=== PATIENT | male | born 1945 | race Caucasian/White ===

== ENCOUNTER 2016-10-06 11:00 | Emergency (ER) | payer MEDICARE ==
[2016-10-06 11:09] VITALS: TEMP 98.3; BMI 36.1
[2016-10-06 11:22] LABS: AUTOMATED BASOPHIL 0.4 % (0-2); AUTOMATED EOSINOPHIL 0.4 % (0-5); AUTOMATED LYMPH 12.2 % (17-44); AUTOMATED MONOCYTE 6.8 % (3-10); AUTOMATED NEUTROPHIL 80.2 % (45-76); MPV 8.1 fL (7.4-10.4)
[2016-10-06] MEDS ORDERED: LABETALOL 20 MG/4 ML SYRINGE IV STA (11:33)
[2016-10-06 11:35] LABS: BLOOD UREA NITROGEN 22 MG/DL (9-20); CALC CORRECTED 9.4 MG/DL (8.4-10.2); CALCIUM 9.3 MG/DL (8.4-10.2); CALCULATED OSMOLALITY 279 MOs/Kg (270-290); CHLORIDE 108 mEq/L (98-107); GLUCOSE 117 MG/DL (70-99); SODIUM LEVEL 143 mEq/L (137-146); TOTAL PROTEIN 6.8 G/DL (6.3-8.2)
[2016-10-06 11:36] LABS: PARTIAL THROMB. TIME 22.6 SEC (22-35)
[2016-10-06] MEDS ORDERED: DILTIAZEM 25 MG/5 ML VIAL IV ONE ×2 (11:42→14:27)
--- NOTE | 2016-10-06 11:47 | EDPRACDOC ---
- General Information Chief Complaint: Chest Pain Stated Complaint: A-FIB Time Seen by Provider: 10/06/16 11:26 Information Source: Patient Home Medications: Home Medications Metoprolol Tartrate 50 mg PO BID #20 tablet 10/06/16 Allergies/Adverse Reactions: Allergies Allergy/AdvReac Type Severity Reaction Status Date / Time No Known Allergies Allergy Verified 10/06/16 11:09 - History of Present Illness Onset: TODAY HPI: PT PRESENTS WITH PALPITATIONS. THIS WAS FOUND WHILE BEING SEEN AT URGENT CARE. HE HAS BEEN TAKING VENUS SELTZER PLUS FOR NASAL CONGESTION. IT CONTAINS PHENYLEPHRINE. HE IS ON A DAILY BETA ANGELY BUT HAS NOT TAKEN IT TODAY. Relevant History: Reports: None Heart Rate (bpm): 165 Pulse is: Irregular Associated signs & symptoms: Reports: Dyspnea. Denies: Chest pain Chest Pain Location: Reports: No Pain ED Past Medical History - History Reviewed Yes Nurses notes reviewed and agree except as marked - Patient Medical History Neurological History: Reports: Cerebrovascular Accident Cardiac History: Reports: Atrial Fibrillation, Hypertension, Hypercholesterolemia. Denies: Heart Attack Psychological History: Denies: Depression - Social Medical History Smoking Status: Former smoker Lives In: Home EDM Review of Systems - Review of Systems ROS Negative Except as Marked: Yes All systems reviewed and were negative except as marked Constitutional: Fatigue. negative: Fever Nose: Congestion, Discharge Respiratory: Shortness of Breath Cardiovascular: negative: Chest Pain Gastrointestinal: negative: Nausea, Pain, Vomiting - Physical Exam Constitutional: Alert Oriented to: Time, Person, Place Last recorded Vital Signs: Last Vital Signs Temp 98.3 F 10/06/16 11:03 Pulse 140 H 10/06/16 11:40 Resp 18 10/06/16 11:40 BP 154/97 10/06/16 11:40 Pulse Ox 94 10/06/16 11:40 Oxygen Pulse Oxygen Saturation 94 O2 Device Room Air Oxygen Flow Rate Fraction of Inspired Oxygen ( FIO2) - HEENT Head: negative: Deformity, Laceration Eye Exam: negative: Conjunctival Injection, Pale Conjunctiva Oropharynx: negative: Membranes Dry Nose: Congestion, Discharge Neck: negative: Limited ROM - Respiratory/Cardiovascular Respiratory: Normal - CTA. negative: Accessory Muscle Use, Diminished, Tachypnea Cardiovascular: Tachycardia, Irregular. negative: Bradycardia - GI Auscultation: Normal Palpation: Normal Tenderness: Non tender - Musculoskeletal Extremities: Radial Pulse (PALPABLE) - Integumentary Skin: Warm, Dry. negative: Rash - Neurologic Memory Impaired: Normal Motor Function: Normal Mood Description: Anxious, Appropriate Thought: Coherent Perception: Normal - Re-evaluation Re-evaluation 1 Re-evaluation Time: 14:27 PT INITIALLY STATED HE WAS NOT ON ANYTHING FOR A.FIB AND THAT HE DID NOT HAVE A.FIB AT BASELINE. ACCORDING TO HIS MEDICATION LIST HE IS ON CARDIZEM DAILY. HE STATES HE DID NOT MISS ANY AND THE ONLY MEDICATION HE IS MISSING IS HIS METOPROLOL. WILL GIVE DOSE OF CARDIZEM HERE AND WRITE FOR SHORT PRESCRIPTION OF METOPROLOL FOR HOME. - Results 10/06/16 11:11 10/06/16 11:11 WBC 14.6 xk/uL (3.8-10.8) H 10/06/16 11:11 RBC 5.29 xM/uL (4.70-6.10) 10/06/16 11:11 Hgb 16.4 g/dL (14.0-18.0) 10/06/16 11:11 Hct 47.8 % (42-52) 10/06/16 11:11 MCV 90 fL (80-94) 10/06/16 11:11 MCH 30.9 pg (27-32) 10/06/16 11:11 MCHC 34.2 g/dl (33-36) 10/06/16 11:11 RDW 15.2 % (11.5-14.5) H 10/06/16 11:11 Plt Count 228 xk/uL (130-400) 10/06/16 11:11 MPV 8.1 fL (7.4-10.4) 10/06/16 11:11 Neut % (Auto) 80.2 % (45-76) H 10/06/16 11:11 Lymph % (Auto) 12.2 % (17-44) L 10/06/16 11:11 Brooke % (Auto) 6.8 % (3-10) 10/06/16 11:11 Eos % (Auto) 0.4 % (0-5) 10/06/16 11:11 Baso % (Auto) 0.4 % (0-2) 10/06/16 11:11 Absolute Neuts (auto) 11.68 xk/uL (1.7-8.2) H 10/06/16 11:11 Absolute Lymphs (auto) 1.75 xk/uL (0.65-4.75) 10/06/16 11:11 PT 10.5 SEC (9.2-11.2) 10/06/16 11:11 INR 1.0 10/06/16 11:11 APTT 22.6 SEC (22-35) 10/06/16 11:11 Sodium 143 mEq/L (137-146) 10/06/16 11:11 Potassium 3.7 mEq/L (3.5-5.1) 10/06/16 11:11 Chloride 108 mEq/L (98-107) H 10/06/16 11:11 Carbon Dioxide 24 mMOL/L (22-33) 10/06/16 11:11 Anion Gap 15 mEq/L (8-16) 10/06/16 11:11 BUN 22 MG/DL (9-20) H 10/06/16 11:11 Creatinine 1.10 MG/DL (0.66-1.25) 10/06/16 11:11 Estimated GFR (MDRD) > 60 mL/min (>=60) 10/06/16 11:11 Glucose 117 MG/DL (70-99) H 10/06/16 11:11 Calculated Osmolality 279 MOs/Kg (270-290) 10/06/16 11:11 Calcium 9.3 MG/DL (8.4-10.2) 10/06/16 11:11 Corrected Calcium 9.4 MG/DL (8.4-10.2) 10/06/16 11:11 Total Bilirubin 1.1 MG/DL (0.2-1.3) 10/06/16 11:11 AST 27 IU/L (17-59) 10/06/16 11:11 ALT 36 IU/L (21-72) 10/06/16 11:11 Alkaline Phosphatase 61 IU/L (50-160) 10/06/16 11:11 Total Protein 6.8 G/DL (6.3-8.2) 10/06/16 11:11 Albumin 3.9 G/DL (3.5-5.0) 10/06/16 11:11 Lab Results 10/06/16 10/06/16 10/06/16 11:11 11:11 11:11 WBC 14.6 H RBC 5.29 Hgb 16.4 Hct 47.8 MCV 90 MCH 30.9 MCHC 34.2 RDW 15.2 H Plt Count 228 MPV 8.1 Neut % (Auto) 80.2 H Lymph % (Auto) 12.2 L Brooke % (Auto) 6.8 Eos % (Auto) 0.4 Baso % (Auto) 0.4 Absolute Neuts (auto) 11.68 H Absolute Lymphs (auto) 1.75 PT 10.5 INR 1.0 APTT 22.6 Sodium 143 Potassium 3.7 Chloride 108 H Carbon Dioxide 24 Anion Gap 15 BUN 22 H Creatinine 1.10 Estimated GFR (MDRD) > 60 Glucose 117 H Calculated Osmolality 279 Calcium 9.3 Corrected Calcium 9.4 Total Bilirubin 1.1 AST 27 ALT 36 Alkaline Phosphatase 61 Total Protein 6.8 Albumin 3.9 - EKG EKG #1 Initial EKG Time: 11:05 -: Yes EKG interpreted by me Rate: bpm: 167 Rhythm: Afib ST: Nonsp - Departure Yes I personally saw and evaluated the patient. Disposition: Home Condition: Stable Final Diagnosis: Atrial fibrillation with RVR, Elevated brain natriuretic peptide (BNP) level, Hypoxemia Instructions: Atrial Fibrillation (ED) Education/Counseling Given To: Patient Education/Counseling Given Regarding: Diagnosis, Treatment, Prognosis, Follow Up Referrals: None,No Provider [Primary Care Provider] - Call for Appointment Prescriptions: Metoprolol Tartrate 50 mg PO BID #20 tablet Forms: ED Discharge Instructions Additional Instructions: PLEASE DO NOT TAKE ANY MORE OF YOUR VENUS SELTZER PLUS COLD MEDICINE. DO NOT TAKE ANYTHING WITH PHENYLEPHRINE IN IT.
--- NOTE | 2016-10-06 12:37 | DIRPT ---
CLINICAL DATA: Chest pain EXAM: PORTABLE CHEST 1 VIEW COMPARISON: None. FINDINGS: Cardiomediastinal silhouette is unremarkable. No pulmonary edema. Streaky right base medially atelectasis or early infiltrate. Bony thorax is unremarkable. IMPRESSION: Streaky right base medially atelectasis or early infiltrate. No pulmonary edema. Electronically Signed By: Atilio Grace M.D. On: 10/06/2016 12:34
[2016-10-06] MEDS ORDERED: Pharmacy Review for Metformin - IV Contrast Given SCH (13:00)
[2016-10-06 13:11] LABS: ABG Draw Site Right Radial; ALLEN'S TEST PASS; BEb 2.8 (+/- 2); TCO2 28.4 MMOL/L (23-27)
--- NOTE | 2016-10-06 13:30 | DIRPT ---
CLINICAL DATA: Atrial fibrillation, shortness breath increased over 6 months. EXAM: CT ANGIOGRAPHY CHEST WITH CONTRAST TECHNIQUE: Multidetector CT imaging of the chest was performed using the standard protocol during bolus administration of intravenous contrast. Multiplanar CT image reconstructions and MIPs were obtained to evaluate the vascular anatomy. CONTRAST: 80 mL Isovue 370 IV COMPARISON: None. FINDINGS: Left arm IV contrast injection. Patent innominate vein and SVC. Mild right atrial enlargement with some contrast reflux into the intrahepatic IVC. RV/LV ratio less than 1. Mildly dilated central pulmonary arteries. Satisfactory opacification of pulmonary arteries noted, and there is no evidence of pulmonary emboli. Patent pulmonary veins. Accessory superior segment right lower lobe pulmonary vein, an anatomic variant. Left atrial enlargement. Mild coronary calcifications. Ascending aorta dilated up to 4.8 cm diameter. Classic 3 vessel brachiocephalic arterial origin anatomy without evident proximal stenosis. Scattered plaque in the aortic arch and descending thoracic aorta without aneurysm, dissection, or stenosis. Small pleural effusions right greater than left. No pericardial effusion. Mildly enlarged subcarinal lymph nodes up to 12 mm diameter. 12 mm right hilar lymph node. 15 mm right paratracheal node. Subcentimeter AP window, pretracheal, and prevascular lymph nodes. Dependent atelectasis posteriorly right greater than left. Thoracic spine intact. Sternum intact. Visualized portions of upper abdomen unremarkable. Review of the MIP images confirms the above findings. IMPRESSION: 1. Negative for acute PE or thoracic aortic dissection. 2. Small bilateral pleural effusions with dependent atelectasis in both lungs. 3. Mild right hilar and mediastinal adenopathy, possibly reactive but nonspecific. 4. 4.8 cm ascending aortic aneurysm. Recommend semi-annual imaging followup by CTA or MRA and referral to cardiothoracic surgery if not already obtained. This recommendation follows 2010 ACCF/AHA/AATS/ACR/ASA/SCA/SCAI/SIR/STS/SVM Guidelines for the Diagnosis and Management of Patients With Thoracic Aortic Disease. Circulation. 2010; 121: s780-t061 Atherosclerosis, including aortic and coronary artery disease. Please note that although the presence of coronary artery calcium documents the presence of coronary artery disease, the severity of this disease and any potential stenosis cannot be assessed on this non-gated CT examination. Assessment for potential risk factor modification, dietary therapy or pharmacologic therapy may be warranted, if clinically indicated. Electronically Signed By: June Taveras M.D. On: 10/06/2016 13:28
[2016-10-06] MEDS ORDERED: ASPIRIN 325 MG TAB PO ONE (14:03)
[2016-10-06] MEDS ORDERED: METOPROLOL TARTRATE 25 MG TAB PO ONE (14:29)
[2016-10-06] MEDS ORDERED: AZITHROMYCIN 250 MG TAB PO ONE (14:39)
[2016-10-06 14:59] VITALS: BP 166/93
[2016-10-06 15:21] VITALS: PULSE 95
== END 2016-10-06 15:15 | disposition home or self-care (01) ==
LOC: ED 11:00
DX: I48.91 Unspecified atrial fibrillation (principal); R07.9 Chest pain, unspecified
CPT/HCPCS: 36415; 36600; 71010; 71275; 80053; 82803; 83880; 84484; 85025; 85610; 85730; 93005; 96374; 96375; 99284; A9270; A9698; J3490

== ENCOUNTER 2016-10-08 09:51 | Inpatient (IN) | payer MEDICARE, OTHER ==
[2016-10-08] MEDS ORDERED: DILTIAZEM 25 MG/5 ML VIAL IV ONE (10:21)
--- NOTE | 2016-10-08 10:29 | DIRPT ---
CLINICAL DATA: Shortness of breath. Chest pain. EXAM: PORTABLE CHEST 1 VIEW COMPARISON: 10/06/[address] 10/06/2016 FINDINGS: Patient slightly rotated to the right. Lungs are adequately inflated and demonstrate minimal prominence of the perihilar markings suggesting minimal vascular congestion. No definite lobar consolidation or effusion. Mild stable cardiomegaly. Remainder of the exam is unchanged. IMPRESSION: Mild stable cardiomegaly with suggestion of minimal vascular congestion. Electronically Signed By: Madhu Durán M.D. On: 10/08/2016 10:26
[2016-10-08 10:34] LABS: ALLEN'S TEST PASS; TCO2 26.7 MMOL/L (23-27)
[2016-10-08 10:36] LABS: ABG Draw Site Left Radial
[2016-10-08 10:38] LABS: AUTOMATED BASOPHIL 0.6 % (0-2); AUTOMATED EOSINOPHIL 0.6 % (0-5); AUTOMATED LYMPH 12.8 % (17-44); AUTOMATED MONOCYTE 6.5 % (3-10); AUTOMATED NEUTROPHIL 79.5 % (45-76)
[2016-10-08 10:49] LABS: BLOOD UREA NITROGEN 26 MG/DL (9-20); CALCIUM 9.3 MG/DL (8.4-10.2); CALCULATED OSMOLALITY 287 MOs/Kg (270-290); CHLORIDE 109 mEq/L (98-107); GLUCOSE 115 MG/DL (70-99); SODIUM LEVEL 146 mEq/L (137-146); TOTAL PROTEIN 7.1 G/DL (6.3-8.2)
[2016-10-08 10:55] LABS: PARTIAL THROMB. TIME 23.9 SEC (22-35)
[2016-10-08] MEDS ORDERED: Pharmacy Review for Metformin - IV Contrast Given SCH (11:00)
[2016-10-08] MEDS ORDERED: Enoxaparin 1 mg per kg per dose SQ ONE (11:11)
--- NOTE | 2016-10-08 11:24 | EDPRACDOC ---
- General Information Chief Complaint: Dyspnea/Resp distress Stated Complaint: DIFFICULTY BREATHING Time Seen by Provider: 10/08/16 10:16 Information Source: Patient, Family Home Medications: Home Medications Metoprolol Tartrate [Lopressor] 100 mg PO BID 10/06/16 Potassium Chloride [Klor-Con M20] 20 meq PO DAILY 10/06/16 Simvastatin [Zocor] 20 mg PO HS 10/06/16 Triamterene/Hydrochlorothiazid [Triamterene-Hctz 75-50 mg Tab] 1 tab PO DAILY Allergies/Adverse Reactions: Allergies Allergy/AdvReac Type Severity Reaction Status Date / Time No Known Allergies Allergy Verified 10/08/16 10:01 - History of Present Illness HPI: DX WITH NEW ONSET AFIB TWO DAYS AGO. CTA CHEST DONE AND NO PE. NO ANTICOAG STARTED. HERE WITH SHOB. DOES NOT WEAR OXYGEN. Shortness of Breath: Mild Cough: Reports: Non-productive Rhinorrhea: Reports: Clear Ear Symptoms: Reports: None SOB Worsens with: Reports: Nothing SOB Improves with: Reports: Nothing Associated Signs and symptoms: Reports: Cough ED Past Medical History - History Reviewed Yes Nurses notes reviewed and agree except as marked - Patient Medical History Neurological History: Reports: Cerebrovascular Accident Cardiac History: Reports: Atrial Fibrillation, Hypertension, Hypercholesterolemia. Denies: Heart Attack Psychological History: Denies: Depression Systemic History: Denies: Cancer - Social Medical History Smoking Status: Former smoker EDM Review of Systems - Review of Systems ROS Negative Except as Marked: Yes All systems reviewed and were negative except as marked - Physical Exam Constitutional: Alert (Awake), No apparent distress Oriented to: Time, Person, Place Last recorded Vital Signs: Last Vital Signs Temp 98.1 F 10/08/16 09:52 Pulse 144 H 10/08/16 10:27 Resp 21 10/08/16 10:27 BP 214/97 H 10/08/16 10:27 Pulse Ox 90 L 10/08/16 10:27 Oxygen Pulse Oxygen Saturation 90 O2 Device Room Air Oxygen Flow Rate Fraction of Inspired Oxygen ( FIO2) - HEENT Head: Normal ( normocephalic) Eye Exam: Normal (PERRL, EOMI, Sclera white) Oropharynx: Normal (Pharynx:Moist without exudate,Gums-no swelling) Tympanic Membrane: Normal ENT EAC: Normal TMJ: Normal Nose: No Symptoms Reported (septum midline) Neck: Normal (FROM, trachea at midline) - Respiratory/Cardiovascular Respiratory: Normal - CTA (BBS clear to auscultation without adventitious sounds ) Cardiovascular: Normal (RRR without murmur, gallop or rub) - GI Auscultation: Normal (NABS) Palpation: Normal (Soft,No rebound or guarding, non distended) Tenderness: Non tender Mayer's Sign: Negative - Musculoskeletal Back: Normal (Non-Tender) Extremities: Normal (Normal tone, Pulses 2+ No cyanosis or edema, FROM) - Integumentary Skin: Normal, Warm, Dry Lymphatics: Normal (no adenopathy) - Neurologic Memory Impaired: Normal Motor Function: Normal (Normal tone, Pulses 2+ No cyanosis or edema, FROM) Cranial Nerve: Normal (CN II-X11 intact sensation, strength 5/5) Cerebellar: Normal Mood Description: Normal Perception: Normal ED SOB MDM - Results Result Diagrams: 10/08/16 10:15 10/08/16 10:15 Results: WBC 13.4 xk/uL (3.8-10.8) H 10/08/16 10:15 RBC 5.23 xM/uL (4.70-6.10) 10/08/16 10:15 Hgb 16.0 g/dL (14.0-18.0) 10/08/16 10:15 Hct 48.0 % (42-52) 10/08/16 10:15 MCV 92 fL (80-94) 10/08/16 10:15 MCH 30.6 pg (27-32) 10/08/16 10:15 MCHC 33.4 g/dl (33-36) 10/08/16 10:15 RDW 15.3 % (11.5-14.5) H 10/08/16 10:15 Plt Count 255 xk/uL (130-400) 10/08/16 10:15 MPV 9.0 fL (7.4-10.4) 10/08/16 10:15 Neut % (Auto) 79.5 % (45-76) H 10/08/16 10:15 Lymph % (Auto) 12.8 % (17-44) L 10/08/16 10:15 Barnes % (Auto) 6.5 % (3-10) 10/08/16 10:15 Eos % (Auto) 0.6 % (0-5) 10/08/16 10:15 Baso % (Auto) 0.6 % (0-2) 10/08/16 10:15 Absolute Neuts (auto) 10.59 xk/uL (1.7-8.2) H 10/08/16 10:15 Absolute Lymphs (auto) 1.61 xk/uL (0.65-4.75) 10/08/16 10:15 PT 10.5 SEC (9.2-11.2) 10/08/16 10:15 INR 1.0 10/08/16 10:15 APTT 23.9 SEC (22-35) 10/08/16 10:15 Puncture Site Left radial 10/08/16 10:30 pH 7.460 pH UNITS (7.35-7.45) H 10/08/16 10:30 pCO2 36.0 mmHg (35-45) 10/08/16 10:30 pO2 55.0 mmHg (80-100) L 10/08/16 10:30 HCO3 25.6 MMOL/L (22-26) 10/08/16 10:30 Total CO2 26.7 MMOL/L (23-27) 10/08/16 10:30 Base Excess 2.0 (+/- 2) 10/08/16 10:30 FiO2 % 21% 10/08/16 10:30 Specimen Drawn By Piksa 10/08/16 10:30 Sodium 146 mEq/L (137-146) 10/08/16 10:15 Potassium 3.7 mEq/L (3.5-5.1) 10/08/16 10:15 Chloride 109 mEq/L (98-107) H 10/08/16 10:15 Carbon Dioxide 26 mMOL/L (22-33) 10/08/16 10:15 Anion Gap 15 mEq/L (8-16) 10/08/16 10:15 BUN 26 MG/DL (9-20) H 10/08/16 10:15 Creatinine 1.20 MG/DL (0.66-1.25) 10/08/16 10:15 Estimated GFR (MDRD) 60 mL/min (>=60) 10/08/16 10:15 Glucose 115 MG/DL (70-99) H 10/08/16 10:15 Calculated Osmolality 287 MOs/Kg (270-290) 10/08/16 10:15 Calcium 9.3 MG/DL (8.4-10.2) 10/08/16 10:15 Total Bilirubin 0.9 MG/DL (0.2-1.3) 10/08/16 10:15 AST 36 IU/L (17-59) 10/08/16 10:15 ALT 59 IU/L (21-72) 10/08/16 10:15 Alkaline Phosphatase 70 IU/L (50-160) 10/08/16 10:15 Total Protein 7.1 G/DL (6.3-8.2) 10/08/16 10:15 Albumin 4.1 G/DL (3.5-5.0) 10/08/16 10:15 Lab Results 10/08/16 10/08/16 10/08/16 10:30 10:15 10:15 WBC 13.4 H RBC 5.23 Hgb 16.0 Hct 48.0 MCV 92 MCH 30.6 MCHC 33.4 RDW 15.3 H Plt Count 255 MPV 9.0 Neut % (Auto) 79.5 H Lymph % (Auto) 12.8 L Barnes % (Auto) 6.5 Eos % (Auto) 0.6 Baso % (Auto) 0.6 Absolute Neuts (auto) 10.59 H Absolute Lymphs (auto) 1.61 PT 10.5 INR 1.0 APTT 23.9 Puncture Site Left radial pH 7.460 H pCO2 36.0 pO2 55.0 L HCO3 25.6 Total CO2 26.7 Base Excess 2.0 FiO2 % 21% Specimen Drawn By Piksa Sodium Potassium Chloride Carbon Dioxide Anion Gap BUN Creatinine Estimated GFR (MDRD) Glucose Calculated Osmolality Calcium Total Bilirubin AST ALT Alkaline Phosphatase Total Protein Albumin 10/08/16 10:15 WBC RBC Hgb Hct MCV MCH MCHC RDW Plt Count MPV Neut % (Auto) Lymph % (Auto) Barnes % (Auto) Eos % (Auto) Baso % (Auto) Absolute Neuts (auto) Absolute Lymphs (auto) PT INR APTT Puncture Site pH pCO2 pO2 HCO3 Total CO2 Base Excess FiO2 % Specimen Drawn By Sodium 146 Potassium 3.7 Chloride 109 H Carbon Dioxide 26 Anion Gap 15 BUN 26 H Creatinine 1.20 Estimated GFR (MDRD) 60 Glucose 115 H Calculated Osmolality 287 Calcium 9.3 Total Bilirubin 0.9 AST 36 ALT 59 Alkaline Phosphatase 70 Total Protein 7.1 Albumin 4.1 - EKG EKG #1 [place]: Normal Rhythm: Afib Block: None Hypertrophy: None ST: Normal ED Critical Care Note - Critical Care Note Total Time (mins): 44 - Departure Yes I personally saw and evaluated the patient. Disposition: Admit IP To This Hospital Condition: Good Final Diagnosis: NEW ONSET AFIB WITH RVR, HYPOXIA Decision to Admit Time: 11:24 (MARVEL) Decision to admit date: 10/08/16 Decision to admit: from ED
[2016-10-08] MEDS ORDERED: ENOXAPARIN 100 MG PFS SQ ONE (11:30)
[2016-10-08] MEDS ORDERED: TUSSIONEX 5 ML ORAL SYRINGE PO PRN (11:46)
[2016-10-08] MEDS ORDERED: DEXTROSE 25 GM/50 ML PFS IV PRN (11:46)
[2016-10-08] MEDS ORDERED: GLUCOSE (ORAL GEL) 15 GM TUBE PO PRN (11:46)
[2016-10-08] MEDS ORDERED: BENZONATATE 100 MG PERLES PO PRN (11:46)
[2016-10-08] MEDS ORDERED: ACETAMINOPHEN 325 MG/TAB TABLET PO PRN (11:46)
[2016-10-08] MEDS ORDERED: PROMETHAZINE 25 MG/ML VIAL IV PRN (11:46)
[2016-10-08] MEDS ORDERED: GLUCAGON 1 MG VIAL SQ PRN (11:46)
[2016-10-08] MEDS ORDERED: Albuterol/Ipratropium Neb 3 ML NEB NEB PRN (11:46)
[2016-10-08] MEDS ORDERED: ACETAMINOPHEN 325 MG SUPP PR PRN (11:46)
[2016-10-08] MEDS ORDERED: BISACODYL 10 MG SUPP PR PRN (11:46)
[2016-10-08] MEDS ORDERED: SENNA CONCENTRATE TAB PO PRN (11:46)
[2016-10-08] MEDS ORDERED: ONDANSETRON HCL 4 MG/2 ML VIAL IV PRN (11:46)
[2016-10-08 13:01] LABS: LEUKOCYTES/URINE NEG (NEGATIVE); NITRITE/URINE NEG (NEGATIVE); RBC/URINE 0-2 (0-2); URINE OCCULT BLOOD NEG (NEG/TRACE)
[2016-10-08] MEDS ORDERED: Vaccine Screening Complete SCH (14:00)
[2016-10-08] MEDS: NS/KCl 20 mEq 1,000 ML IV SCH (15:15)
[2016-10-08] MEDS: REGULAR INSULIN 100 UNITS/ML - 3 ML VIAL SQ SCH (17:38)
[2016-10-08] MEDS ORDERED: Magnesium Sulfate 2 gm/D5W 2 GM/50 ML RTU IV ONE (18:11)
--- NOTE | 2016-10-08 19:13 | HISTPHYS ---
- Chief Complaint Complains of worse shortness of breath today and was diagnosed with atrial fibrillation 2 days ago. - History of Present Illness Patient very pleasant 71-year-old white single male lives alone who gets his medical care at the [facility] [place] and unfortunately ran out of his Lopressor 100 mg twice daily on September 28. He was waiting for to be delivered to him from the clinic. He complained of sinuses stopping up with vomiting 2 days ago went to an urgent care center where he was found to have rapid atrial fib and had been using phenylephrine in addition to being out of his beta-senia. At that point he was sent to the emergency room for further evaluation and placed back on his Lopressor 100 mg twice daily. He improved in the emergency room and was sent home. Unfortunately this morning he awakened extremely short of breath and came back in emergency room found to be in rapid atrial fib with a heart rate of 144 blood pressure systolic over 210. He was started on IV Cardizem and we were consulted to care for him. I might add he had a CT of the chest which did not show any evidence pulmonary embolus 2 days ago and his TSH was normal. The CT of the chest did show a 4.8 ascending thoracic aortic aneurysm which will warrant follow-up with a CT surgeon. - Medical History Cardiac History: Reports: No Significant History, Hypertension. Denies: Congestive Heart Failure, Heart Attack, Syncope Respiratory History: Reports: Emphysema (He quit smoking more than 20 years ago) GI/ History: Reports: No Significant History Musculoskeletal History: Reports: Arthritis (Left shoulder injury he fell off truck 03/2016 has restriction range motion) Neurological History: Reports: Cerebrovascular Accident (Left facial weakness 20 years ago or more). Denies: Seizures Psychological History: Denies: Depression, Anxiety - Medictions/Allergies Allergies No Known Allergies Allergy (Verified 10/08/16 10:01) Current Medication List: Reviewed Home Medications Metoprolol Tartrate [Lopressor] 100 mg PO BID 10/06/16 Potassium Chloride [Klor-Con M20] 20 meq PO DAILY 10/06/16 Simvastatin [Zocor] 20 mg PO HS 10/06/16 Triamterene/Hydrochlorothiazid [Triamterene-Hctz 75-50 mg Tab] 1 tab PO DAILY - Family History Reports: Diabetes (Daughter with diabetes mellitus and other family members), Stroke (Mother of stroke), Cardiac Disorders (Father of abdominal aortic aneurysm rupture) - Social History Travel Outside of [place] in the Last 3 Months?: No Lives: Alone Smoking Status: Former smoker (Quit smoking more than 20 years ago) Social History: Reports: Alcohol Use (Occasional beer). Denies: Substance Use Disorder - Review of Systems Constitutional: No Symptoms Reported (No Fever, chills, wt loss/gain, diaphoresis,fatigue/malaise.) Eyes: No Symptoms Reported (No blurry vision, visual changes, eye pain, or eye redness.) Ears: No Symptoms Reported (No ear pain or discharge) Nose: No Symptoms Reported (No nasal discharge/congestion or bleeding) Mouth: No Symptoms Reported (No oropharyngeal lesions or erythema) Throat/Neck: No Symptoms Reported (No throat pain or swelling.No oropharyngeal lesions or erythema.) Respiratory: Shortness of Breath (Severe shortness breath this morning which prompted his visit getting the paper this morning) Cardiovascular: Palpitations, PND (Awakens at night). negative: Orthopnea ( Sleeps on 1 pillow) Gastrointestinal: No Symptoms Reported (No abdominal pain, nausea, vomiting, diarrhea, constipation, or bloody stool.) Genitourinary: No Symptoms Reported (No dysuria or hematuria.) Neurological: Other (Lower back pain over the past week) Musculoskeletal:: Chronic low back pain (Over the past week and mentions falling off a truck injuring his back and left shoulder March 2016) Integumentary: No Symptoms Reported (no rashes or lesions) Allergic/Immunologic: No Symptoms Reported (no rashes or lesions) Hematologic: No Symptoms Reported (No chronic anemia, bleeding, or easy bruising.), Other (Lymphatics- no lymph node swelling or pain.) Endocrine: No Symptoms Reported (No thyroid issues, polyuria, or polydipsia.) Psychiatric: No Symptoms Reported (Fully oriented, with normal and appropriate affect.) - Physical Exam Vital Signs: Initial Vitals Temperature 98.1 F 10/08/16 09:52 Pulse Rate 116 10/08/16 09:52 Respiratory Rate 18 10/08/16 09:52 Blood Pressure 160/108 H 10/08/16 09:52 Pulse Oxygen Saturation 94 10/08/16 09:52 Constitutional: Alert (Awake, Fully oriented. Normal and appropriate affect.Well appearing. Well nourished.), No apparent distress Oriented to: Time, Person, Place - HEENT Head: Normal (normocephalic, atraumatic.), Other (No cervical lymphadenopathy. No supraclavicular lymphadenopathy. Neck: No palpable mass, supple , trachea midline.) Eye: Normal (pupils equal, reactive to light, and round; EOMI, Sclera white) Oropharynx: Normal (Pharynx: Moist without exudate,Gums-no swelling, No oropharyngeal lesions or erythema, Mucous membranes are dry.) ENT EAC: Normal (No oropharyngeal lesions or erythema. Mucous membranes are dry. ) TMJ: Normal Nose: No Symptoms Reported (septum midline, Nares patent, without discharge or bleeding.) Respiratory: Normal - CTA (Clear to auscultation bilaterally. No wheezing, rales , rhonchi. Chest wall movements are symmetric. No use of accessory muscles to breathe.) Cardiovascular: Tachycardia, Irregular. negative: Diastolic murmur, Systolic murmur, Gallop/S3, Gallop/S4 - GI Auscultation: Normal (normal active sounds) Palpation: Normal (Soft,non distended,nontender. No hepatosplenomegaly.), Other (Obese with BMI 35.5) Tenderness: Non tender Mayer's Sign: Negative - Musculoskeletal Back: Normal (Non-Tender) Extremities: Other (Limited range of motion left arm only able to raise 100 from his side) Spine: non-tender, normal alignment, normal inspection, limited range of motion - Integumentary Skin: Normal (Clean, dry, and intact. No rashes. No lesions.) Lymphatics: Normal (No cervical lymphadenopathy. No supraclavicular lymphadenopathy.) - Neurologic Memory Impaired: Normal Motor Function: Normal (Motor 5/5 throughout.Normal tone, Pulses 2+ No cyanosis or edema, limited range of motion left arm as described above) Cranial Nerve: Normal (CN II-XII intact sensation, strength 5/5) Cerebellar: Normal (Babinski: toes downgoing bilaterally. Intact Finger to nose. Sensory grossly intact to light touch. Intact rapid alternating movements bilaterally. No pronator drift.) Mood Description: Normal (Fully oriented. Normal and appropriate affect.) Thought: Coherent Perception: Normal (Normal and appropriate affect.) - Focused CV Perfusion Exam Vital Signs: Last Vital Signs Temp 98 F 10/08/16 16:37 Pulse 115 10/08/16 17:47 Resp 20 10/08/16 16:37 BP 157/99 10/08/16 16:37 Pulse Ox 94 10/08/16 16:37 - Lab Results 10/08/16 10:15 10/08/16 10:15 Laboratory Results - last 24 hr 10/08/16 10/08/16 10/08/16 10:15 10:15 10:15 WBC 13.4 H RBC 5.23 Hgb 16.0 Hct 48.0 MCV 92 MCH 30.6 MCHC 33.4 RDW 15.3 H Plt Count 255 MPV 9.0 Neut % (Auto) 79.5 H Lymph % (Auto) 12.8 L [place] % (Auto) 6.5 Eos % (Auto) 0.6 Baso % (Auto) 0.6 Absolute Neuts (auto) 10.59 H Absolute Lymphs (auto) 1.61 PT 10.5 INR 1.0 APTT 23.9 Puncture Site pH pCO2 pO2 HCO3 Total CO2 Base Excess FiO2 % Specimen Drawn By Sodium 146 Potassium 3.7 Chloride 109 H Carbon Dioxide 26 Anion Gap 15 BUN 26 H Creatinine 1.20 Estimated GFR (MDRD) 60 Glucose 115 H POC Capillary Glucose Calculated Osmolality 287 Calcium 9.3 Magnesium Total Bilirubin 0.9 AST 36 ALT 59 Alkaline Phosphatase 70 Troponin I 0.06 Mpv-V-Tphdtibsmmk Pept 5080 H Total Protein 7.1 Albumin 4.1 TSH Urine Color Urine Clarity Urine pH Ur Specific [place] Urine Protein Urine Glucose (UA) Urine Ketones Urine Occult Blood Urine Nitrite Urine Bilirubin Urine Urobilinogen Ur Leukocyte Esterase Urine RBC Urine WBC Ur Epithelial Cells Urine Bacteria Urine Mucus 10/08/16 10/08/16 10/08/16 10:15 10:30 12:25 WBC RBC Hgb Hct MCV MCH MCHC RDW Plt Count MPV Neut % (Auto) Lymph % (Auto) [place] % (Auto) Eos % (Auto) Baso % (Auto) Absolute Neuts (auto) Absolute Lymphs (auto) PT INR APTT Puncture Site Left radial pH 7.460 H pCO2 36.0 pO2 55.0 L HCO3 25.6 Total CO2 26.7 Base Excess 2.0 FiO2 % 21% Specimen Drawn By [place] Sodium Potassium Chloride Carbon Dioxide Anion Gap BUN Creatinine Estimated GFR (MDRD) Glucose POC Capillary Glucose Calculated Osmolality Calcium Magnesium Total Bilirubin AST ALT Alkaline Phosphatase Troponin I Cex-F-Olpgcluwado Pept Total Protein Albumin TSH 3.44 Urine Color Yellow Urine Clarity Clear Urine pH 6.0 Ur Specific [place] 1.020 Urine Protein 3+ H Urine Glucose (UA) Neg Urine Ketones Neg Urine Occult Blood Neg Urine Nitrite Neg Urine Bilirubin Neg Urine Urobilinogen <2.0 Ur Leukocyte Esterase Neg Urine RBC 0-2 Urine WBC 2-5 H Ur Epithelial Cells Occ Urine Bacteria Few Urine Mucus Large 10/08/16 10/08/16 10/08/16 12:50 15:50 15:50 WBC RBC Hgb Hct MCV MCH MCHC RDW Plt Count MPV Neut % (Auto) Lymph % (Auto) [place] % (Auto) Eos % (Auto) Baso % (Auto) Absolute Neuts (auto) Absolute Lymphs (auto) PT INR APTT Puncture Site pH pCO2 pO2 HCO3 Total CO2 Base Excess FiO2 % Specimen Drawn By Sodium Potassium Chloride Carbon Dioxide Anion Gap BUN Creatinine Estimated GFR (MDRD) Glucose POC Capillary Glucose Calculated Osmolality Calcium Magnesium 1.90 Total Bilirubin AST ALT Alkaline Phosphatase Troponin I 0.06 0.06 Sde-D-Wwfpdpbvvkt Pept Total Protein Albumin TSH Urine Color Urine Clarity Urine pH Ur Specific [place] Urine Protein Urine Glucose (UA) Urine Ketones Urine Occult Blood Urine Nitrite Urine Bilirubin Urine Urobilinogen Ur Leukocyte Esterase Urine RBC Urine WBC Ur Epithelial Cells Urine Bacteria Urine Mucus 10/08/16 17:34 WBC RBC Hgb Hct MCV MCH MCHC RDW Plt Count MPV Neut % (Auto) Lymph % (Auto) [place] % (Auto) Eos % (Auto) Baso % (Auto) Absolute Neuts (auto) Absolute Lymphs (auto) PT INR APTT Puncture Site pH pCO2 pO2 HCO3 Total CO2 Base Excess FiO2 % Specimen Drawn By Sodium Potassium Chloride Carbon Dioxide Anion Gap BUN Creatinine Estimated GFR (MDRD) Glucose POC Capillary Glucose 89 Calculated Osmolality Calcium Magnesium Total Bilirubin AST ALT Alkaline Phosphatase Troponin I Tmj-S-Apudqqoxzvw Pept Total Protein Albumin TSH Urine Color Urine Clarity Urine pH Ur Specific [place] Urine Protein Urine Glucose (UA) Urine Ketones Urine Occult Blood Urine Nitrite Urine Bilirubin Urine Urobilinogen Ur Leukocyte Esterase Urine RBC Urine WBC Ur Epithelial Cells Urine Bacteria Urine Mucus - Diagnostic Findings CT of the chest: IMPRESSION: 1. Negative for acute PE or thoracic aortic dissection. 2. Small bilateral pleural effusions with dependent atelectasis in both lungs. 3. Mild right hilar and mediastinal adenopathy, possibly reactive but nonspecific. 4. 4.8 cm ascending aortic aneurysm. Recommend semi-annual imaging followup by CTA or MRA and referral to cardiothoracic surgery if not already obtained. This recommendation follows 2010 ACCF/AHA/AATS/ACR/ASA/SCA/SCAI/SIR/STS/SVM Guidelines for the Diagnosis and Management of Patients With Thoracic Aortic Disease. Circulation. 2010; 121: [id number] Atherosclerosis, including aortic and coronary artery disease. Please note that although the presence of coronary artery calcium documents the presence of coronary artery disease, the severity of this disease and any potential stenosis cannot be assessed on this non-gated CT examination. Assessment for potential risk factor modification, dietary therapy or pharmacologic therapy may be warranted, if clinically indicated. - Assessment (1) Congestive heart failure I50.9 - HEART FAILURE, UNSPECIFIED Acute Present on Admission: Yes Qualifiers: Congestive heart failure type: combined Congestive heart failure chronicity : acute Qualified Code(s): I50.41 - Acute combined systolic (congestive) and diastolic (congestive) heart failure Heart failure associated with rapid atrial fib but also concerned he has a systolic component which will be verified with echocardiogram tomorrow. Cardiology consult requested. (2) Thoracic ascending aortic aneurysm I71.2 - THORACIC AORTIC ANEURYSM, WITHOUT RUPTURE Chronic Present on Admission: Yes Will need to have follow up with thoracic surgeon and repeat CT 6 months from now to monitor size. (3) Hypercholesterolemia E78.00 - PURE HYPERCHOLESTEROLEMIA, UNSPECIFIED Chronic Present on Admission: Yes Statin therapy is ordered but since taking Cardizem will have to switch Zocor to Lipitor. (4) Hypertension I10 - ESSENTIAL (PRIMARY) HYPERTENSION Chronic Present on Admission: Yes Qualifiers: Hypertension type: essential hypertension Qualified Code(s): I10 - Essential (primary) hypertension (5) Atrial fibrillation with RVR I48.91 - UNSPECIFIED ATRIAL FIBRILLATION Acute Present on Admission: Yes Echocardiogram is ordered and cardiology follow-up will be necessary. Full anticoagulation for now and discuss continuation with Cardiology. Control of heart rate will be achieved with the metoprolol and Cardizem. Switching his Zocor to Lipitor will be necessary due to the use of Cardizem. (6) Left shoulder pain M25.512 - PAIN IN LEFT SHOULDER Chronic Present on Admission: Yes Qualifiers: Chronicity: chronic Qualified Code(s): M25.512 - Pain in left shoulder; G89.29 - Other chronic pain (7) Low back pain M54.5 - LOW BACK PAIN Acute Present on Admission: Yes Qualifiers: Chronicity: acute Back pain laterality: midline Sciatica presence: without sciatica Qualified Code(s): M54.5 - Low back pain (8) Elevated brain natriuretic peptide (BNP) level R79.89 - OTHER SPECIFIED ABNORMAL FINDINGS OF BLOOD CHEMISTRY Acute Present on Admission: Yes [place]quez zone troponins of 0.06 times 2. May be due to demand ischemia associated with coronary insufficiency with the rapid heart rate. (9) Hypoxemia R09.02 - HYPOXEMIA Acute Present on Admission: Yes Supplemental O2 as ordered. - Plan Due to the presence of and / or the risk of deterioration, my attendance to this patient required critical care time, including assessment/reassessment, documentation, ordering and interpreting ancillary studies, discussion with staff and consultants,patient and family, and excludes time spent on separately billable procedures. This individual is critically ill and in danger of dying. Case Care Discussed with: Patient, Family, Nursing Staff Total Time: Critical care time spent 1 hour 28 minutes Critical Care: Yes Code: 291 (292)
[2016-10-08] MEDS: METOPROLOL TARTRATE 100 MG TAB PO SCH (20:12)
[2016-10-08] MEDS: ATORVASTATIN 40 MG TAB PO SCH (20:12)
[2016-10-08] MEDS ORDERED: SIMVASTATIN 20 MG TAB PO SCH (21:00)
--- NOTE | 2016-10-08 23:35 | DIRPT ---
CLINICAL DATA: Acute onset of left shoulder pain and limited range of motion. Initial encounter. EXAM: LEFT SHOULDER - 2+ VIEW COMPARISON: CTA of the chest performed 10/06/2016 FINDINGS: There is no evidence of fracture or dislocation. The left humeral head is seated within the glenoid fossa. Mild degenerative change is noted at the left acromioclavicular joint, with mild inferior osteophyte formation, corresponding to a higher anatomic risk for impingement. No significant soft tissue abnormalities are seen. The visualized portions of the left lung are clear. IMPRESSION: No evidence of fracture or dislocation. Mild inferior osteophyte formation along the left acromioclavicular joint corresponds to a higher anatomic risk for impingement. Electronically Signed By: Bear Abebe M.D. On: 10/08/2016 23:32
[2016-10-09 03:14] LABS: AUTOMATED BASOPHIL 1.2 % (0-2); AUTOMATED EOSINOPHIL 1.4 % (0-5); AUTOMATED MONOCYTE 6.9 % (3-10); AUTOMATED NEUTROPHIL 69.5 % (45-76); MPV 9.1 fL (7.4-10.4)
[2016-10-09 03:26] LABS: BLOOD UREA NITROGEN 24 MG/DL (9-20); CALCIUM 8.6 MG/DL (8.4-10.2); CALCULATED OSMOLALITY 275 MOs/Kg (270-290); CHLORIDE 108 mEq/L (98-107); GLUCOSE 104 MG/DL (70-99); SODIUM LEVEL 141 mEq/L (137-146)
[2016-10-09] MEDS: POTASSIUM CHLORIDE 20 MEQ TAB PO SCH ×3 (06:16→09:06)
[2016-10-09] MEDS: KCl 10 mEq/100 ml Premix (Run) 10 MEQ/100 ML RTU IV SCH ×4 (06:16→13:00)
[2016-10-09] MEDS: REGULAR INSULIN 100 UNITS/ML - 3 ML VIAL SQ SCH ×2 (06:16→16:37)
[2016-10-09] MEDS: ATORVASTATIN 40 MG TAB PO SCH (07:41)
[2016-10-09] MEDS: HCTZ PO SCH (08:09)
[2016-10-09] MEDS: METOPROLOL TARTRATE 100 MG TAB PO SCH ×2 (08:09→19:35)
[2016-10-09] MEDS: TRIAMTERENE PO SCH (08:09)
[2016-10-09] MEDS ORDERED: DILTIAZEM HCL 120 MG CAPSULE.CR PO ONE (09:00)
--- NOTE | 2016-10-09 10:20 | CAPUECHO ---
INDICATION: AFIB/AFLUTTER CHF HEIGHT: 167.6 cm (5 ft 6.0 in) WEIGHT: 99.3 kg (219.0 lbs) BP: 158/94 BSA: 2.644912 m MEASUREMENTS 2D RVIDd: 3.4 cm LVOT Diam: 2.1 cm LA Diam: 4.3 cm EF Biplane: 32.13 % LAESV MOD A4C: 68.6 ml LAESV MOD A2C: 64.4 ml LAESV Index (A-L): 36.63 ml/m M-MODE IVSd: 1.0 cm LVIDd: 6.3 cm LVPWd: 1.0 cm LVIDs: 5.4 cm EF(Teich): 30 % DOPPLER MV E Dewayne: 1.09 m/s MV A Dewayne: 0.00 m/s MV PHT: 38.53 ms MVA By PHT: 5.71 cm LVOT Vmax: 0.83 m/s AV Vmax: 1.32 m/s CLARENCE Vmax, Pt: 2.27 cm TR Vmax: 3.14 m/s TR maxP mmHg RVSP: 49.94 mmHg FINDINGS ------- Procedure:2D images, m-mode, color and spectral Doppler were obtained and reviewed. ECG rhythm:Atrial fibrillation. Study quality:This was a technically difficult study with suboptimal views. Left Ventricle:The left ventricle is mildly dilated. Overall left ventricular systolic function is moderate-severely impaired with, an EF between 30 - 35 %. Right Ventricle:The right ventricle is normal in size and function. Left Atrium:The left atrium is mildly dilated. Right Atrium:The right atrium is mildly enlarged. Aortic Valve:The aortic valve is trileaflet and appears structurally normal. There is mild aortic regurgitation. Mitral Valve:Normal appearing mitral valve. There is trace mitral regurgitation. Tricuspid Valve:The tricuspid valve appears structurally normal. [id number] tricuspid regurg itation present. The right ventricular systolic pressure, as measured by Doppler, is 50 mmhg. Pulmonic Valve:The pulmonic valve is normal. There is no pulmonic regurgitation present. Aorta:The aortic root, ascending aorta and aortic arch appear normal. IVC:Normal inferior vena cava with normal inspiratory collapse. Pericardium:There is no pericardial effusion. CONCLUSIONS 1. Atrial fibrillation. 2. This was a technically difficult study with suboptimal views. 3. The left ventricle is mildly dilated. 4. Overall left ventricular systolic function is moderate-severely impaired with, an EF between 30 - 35 %. 5. The left atrium is mildly dilated. 6. The right atrium is mildly enlarged. 7. There is mild aortic regurgitation. 8. [id number] tricuspid regurgitation present. 9. The right ventricular systolic pressure, as measured by Doppler, is 50 mmhg. Electronically Signed By: Israel Dang MD -- Electronically Signed On: 10:12:14
--- NOTE | 2016-10-09 10:53 | PCM.CARDCO ---
Consultation Date: 10/09/16 Requesting Physician: Marcelo Del Angel Lining Caser: Israel Dang Consult Reason: Dysrhythmia - History of Present Illness Patient is a 71-year-old male. I was called to see him for atrial fibrillation. He did not appear very wanting to be evaluated. I tried to ask him a lot of questions and he was not very happy about it and he was not very cooperative about it. He mentions to me that he missed out on his beta-senia and went to urgent care and was found to have a elevated heart rate. No chest pain orthopnea or PND. At the time of my evaluation is alert awake oriented comfortable and in no distress head he denies any chest pain. I reviewed his echocardiogram before I saw him and found his left ventricular systolic function to be moderately depressed. The echocardiogram quality was fair in view of atrial fibrillation and significantly elevated heart rate. Chief Complaint: Complains of worse shortness of breath today and was diagnosed with atrial fibrillation 2 days ago. - Past Medical and Surgical History Cardiac History: Reports: No Significant History, Hypertension. Denies: Congestive Heart Failure, Heart Attack, Syncope Respiratory History: Reports: No Significant History, Emphysema (He quit smoking more than 20 years ago) GI/ History: Reports: No Significant History Systemic History: Reports: No Significant History Musculoskeletal History: Reports: No Significant History, Arthritis (Left shoulder injury he fell off truck 03/2016 has restriction range motion) Psychological History: Reports: No Significant History, Alcoholism (Occasional beer). Denies: Depression, Anxiety, Substance Use Disorder Neurological History: Reports: No Significant History, Cerebrovascular Accident (Left facial weakness 20 years ago or more). Denies: Seizures Past Surgical History: Reports: No Significant History Allergies No Known Allergies Allergy (Verified 10/08/16 10:01) Home Medications Metoprolol Tartrate [Lopressor] 100 mg PO BID 10/06/16 Potassium Chloride [Klor-Con M20] 20 meq PO DAILY 10/06/16 Simvastatin [Zocor] 20 mg PO HS 10/06/16 Triamterene/Hydrochlorothiazid [Triamterene-Hctz 75-50 mg Tab] 1 tab PO DAILY - Social History Travel Outside of [place] in the Last 3 Months?: No Lives: Alone Smoking Status: Former smoker (Quit smoking more than 20 years ago) Social History: Reports: Alcohol Use (Occasional beer). Denies: Substance Use Disorder - Family History Reports: No Significant History, Diabetes (Daughter with diabetes mellitus and other family members), Stroke (Mother of stroke), Cardiac Disorders ( Father of abdominal aortic aneurysm rupture) - Review of Systems Constitutional: No Symptoms Reported (No Fever, chills, wt loss/gain, diaphoresis,fatigue/malaise.) - Physical Exam Constitutional: Alert (Awake, Fully oriented. Normal and appropriate affect.Well appearing. Well nourished.), No apparent distress Oriented to: Time, Person, Place Exam: Last Vital Signs Temp 98.6 F 10/09/16 08:15 Pulse 89 10/09/16 10:00 Resp 20 10/09/16 08:15 BP 119/110 H 10/09/16 08:15 Pulse Ox 92 10/09/16 08:15 Intake & Output 10/08/16 10/09/16 10/09/16 23:59 07:59 15:59 Intake Total 360 605 Output Total 400 400 Balance -40 205 Patient's weight 100.045 kg - HEENT Head: Normal (normocephalic, atraumatic.), Other (No cervical lymphadenopathy. No supraclavicular lymphadenopathy. Neck: No palpable mass, supple , trachea midline.) Eye: Normal (pupils equal, reactive to light, and round; EOMI, Sclera white) Oropharynx: Normal (Pharynx: Moist without exudate,Gums-no swelling, No oropharyngeal lesions or erythema, Mucous membranes are dry.) ENT EAC: Normal (No oropharyngeal lesions or erythema. Mucous membranes are dry. ) TMJ: Normal Nose: No Symptoms Reported (septum midline, Nares patent, without discharge or bleeding.) - Respiratory/Cardiovascular Respiratory: Normal - CTA (Clear to auscultation bilaterally. No wheezing, rales , rhonchi. Chest wall movements are symmetric. No use of accessory muscles to breathe.) Cardiovascular: Irregular (Heart sounds irregular 2/6 systolic murmur at the apex) - GI Auscultation: Normal (normal active sounds) Palpation: Normal (Soft,non distended,nontender. No hepatosplenomegaly.), Other (Obese with BMI 35.5) Tenderness: Non tender - Musculoskeletal Back: Normal (Non-Tender) Extremities: Other (Limited range of motion left arm only able to raise 100 from his side) - Integumentary Skin: Normal (Clean, dry, and intact. No rashes. No lesions.) Lymphatics: Normal (No cervical lymphadenopathy. No supraclavicular lymphadenopathy.) - Neurologic Memory Impaired: Normal Cerebellar: Normal (Babinski: toes downgoing bilaterally. Intact Finger to nose. Sensory grossly intact to light touch. Intact rapid alternating movements bilaterally. No pronator drift.) Mood Description: Normal (Fully oriented. Normal and appropriate affect.) Thought: Coherent Perception: Normal (Normal and appropriate affect.) - Other Exam Other Exam Findings: Abdomen is nontender. No cyanosis clubbing or pedal edema on the extremity evaluation. - Assessment/Plan (1) Nonsustained ventricular tachycardia I47.2 - VENTRICULAR TACHYCARDIA Acute Comment: Patient will be evaluated for this especially in view of the fact that he has moderately depressed left ventricular systolic function. His electrolytes are fine at this time. Patient is on a beta-senia. Once his heart rate is stabilized he will need a stress testing to assess for any objective evidence of coronary artery disease. He has no history of coronary artery disease. Also his Aditya score is 1 and he will need to be on a full-strength aspirin. (2) Hypertension I10 - ESSENTIAL (PRIMARY) HYPERTENSION Chronic essential hypertension I10 - Essential (primary) hypertension Comment: Blood pressure is elevated and will be monitored closely. He is getting appropriate medications which are beta-blockers and calcium channel blockers. Once his heart rate is under better control we will add Dax inhibitors. Her (3) Thoracic ascending aortic aneurysm I71.2 - THORACIC AORTIC ANEURYSM, WITHOUT RUPTURE Chronic Comment: Patient needs to be on a statin for this and must be followed closely by cardiothoracic surgery and vascular surgery for this diagnosis. This is being followed by the hospitalist and they will make arrangements for this. (4) Atrial fibrillation with RVR I48.91 - UNSPECIFIED ATRIAL FIBRILLATION Acute Comment: Rates are under better control than when he came into the hospital where not optimal. (5) Cardiomyopathy I42.9 - CARDIOMYOPATHY, UNSPECIFIED Acute Comment: As mentioned above patient will need to be on a beta-senia and DAX-inhibitor this will need to be monitored closely.
[2016-10-09] MEDS: Aspirin (Orange Enteric Coated) 325 mg tab PO SCH (14:35)
--- NOTE | 2016-10-09 15:02 | GENMEDPROG ---
Chief Complaint: marley for years no chest discomfort Notes Reviewed: Yes Events from last night noted and discussed with Clinical Staff Current Medication List: Reviewed DVT Prophylaxis: Yes - Physical Examination Vital Signs and I&O: Last Vital Signs Temp 97.9 F 10/09/16 11:52 Pulse 69 10/09/16 11:52 Resp 20 10/09/16 11:52 BP 144/93 10/09/16 11:52 Pulse Ox 93 10/09/16 11:52 Oxygen Pulse Oxygen Saturation 93 O2 Device Nasal Cannula Oxygen Flow Rate 2 Fraction of Inspired Oxygen ( FIO2) Intake & Output 10/06/16 10/07/16 10/08/16 10/09/16 23:59 23:59 23:59 23:59 Intake Total 360 605 Output Total 400 800 Balance -40 -195 Patient's weight 99.654 kg 100.045 kg General: Alert, Oriented x3, No acute distress, Well appearing, Well nourished HEENT: Normal (Normocephalic, atraumatic;EOMI.Sclera white, Nares patent, without discharge or bleeding. No oropharyngeal lesions or erythema. Mucous membranes are dry.) Neck: Non-tender, Normal Trachea alignment, Normal inspection (No cervical lymphadenopathy. No supraclavicular lymphadenopathy.), No Masses palpable, Limited range of motion, Supple Lymphatics: Normal (No cervical lymphadenopathy. No supraclavicular lymphadenopathy.) Respiratory: Normal - CTA (Clear to auscultation bilaterally. No wheezing, rales , rhonchi. Chest wall movements are symmetric. No use of accessory muscles to breathe.) Cardiovascular: Normal S1, No Gallops,Rubs/Murmurs, Normal S2, Good Pedal Pulses (DP pulses 2+ bilaterally), Irregular (tachycard improved). negative: Regular rate and rhythm GI: Normal bowel sounds (normal active sounds), Soft (non-distended), Non tender , No hepatospenomegaly, No masses Extremities/Musculoskeletal: Normal pulses (DP pulses 2+ bilaterally) Skin: Warm,Dry and Intact, No rashes, No significant lesion Neurological: Normal tone, Cranial nerves 3-12 NL ( 2-12 grossly intact.). negative: Strength at 5/5 X4 ext Psych/Mental Status: Appropriate, Normal Affect Lab/DI/Studies Reviewed: 10/09/16 02:50 10/09/16 02:50 Laboratory Results - last 24 hr 10/08/16 10/08/16 10/08/16 10:15 15:50 15:50 WBC RBC Hgb Hct MCV MCH MCHC RDW Plt Count MPV Neut % (Auto) Lymph % (Auto) Piute % (Auto) Eos % (Auto) Baso % (Auto) Absolute Neuts (auto) Absolute Lymphs (auto) Sodium Potassium Chloride Carbon Dioxide Anion Gap BUN Creatinine Estimated GFR (MDRD) Glucose POC Capillary Glucose Hemoglobin A1c 5.7 Calculated Osmolality Calcium Magnesium 1.90 Troponin I 0.06 10/08/16 10/09/16 10/09/16 17:34 02:50 02:50 WBC 10.0 RBC 4.52 L Hgb 14.2 D Hct 41.2 L MCV 91 MCH 31.4 MCHC 34.5 RDW 15.3 H Plt Count 206 MPV 9.1 Neut % (Auto) 69.5 Lymph % (Auto) 21.0 Piute % (Auto) 6.9 Eos % (Auto) 1.4 Baso % (Auto) 1.2 Absolute Neuts (auto) 6.90 Absolute Lymphs (auto) 2.10 Sodium 141 Potassium 3.6 Chloride 108 H Carbon Dioxide 26 Anion Gap 11 BUN 24 H Creatinine 1.00 Estimated GFR (MDRD) > 60 Glucose 104 H POC Capillary Glucose 89 Hemoglobin A1c Calculated Osmolality 275 Calcium 8.6 Magnesium Troponin I 10/09/16 10/09/16 02:50 05:05 WBC RBC Hgb Hct MCV MCH MCHC RDW Plt Count MPV Neut % (Auto) Lymph % (Auto) Piute % (Auto) Eos % (Auto) Baso % (Auto) Absolute Neuts (auto) Absolute Lymphs (auto) Sodium Potassium Chloride Carbon Dioxide Anion Gap BUN Creatinine Estimated GFR (MDRD) Glucose POC Capillary Glucose 121 H Hemoglobin A1c Calculated Osmolality Calcium Magnesium 2.30 Troponin I - Assessment (1) Congestive heart failure Acute I50.9 - HEART FAILURE, UNSPECIFIED Qualifiers: Congestive heart failure type: combined Congestive heart failure chronicity : acute Qualified Code(s): I50.41 - Acute combined systolic (congestive) and diastolic (congestive) heart failure Comment/Plan: Heart failure associated with rapid atrial fib but also concerned he has a systolic component which was verified with echocardiogram which showed his ejection fraction to be between 30 and 35%. Cardiology consult obtained and appreciated. Apparently amiodarone is not indicated at this point time. (2) Thoracic ascending aortic aneurysm Chronic I71.2 - THORACIC AORTIC ANEURYSM, WITHOUT RUPTURE Comment/Plan: Will need to have follow up with thoracic surgeon and repeat CT 6 months from now to monitor size. May need to go to the [facility] for thoracic surgeon. (3) Nonsustained ventricular tachycardia Acute I47.2 - VENTRICULAR TACHYCARDIA Comment/Plan: Nonsustained ventricular tachycardia prompted my obtaining consultation with Dr. Dang, who recommended that the heart rate be controlled prior to getting lexiscan in am. Apparently no need for amiodarone at this point time. Although this issue can be revisited in the future. (4) Hypertension Chronic I10 - ESSENTIAL (PRIMARY) HYPERTENSION Qualifiers: Hypertension type: essential hypertension Qualified Code(s): I10 - Essential (primary) hypertension (5) Atrial fibrillation with RVR Acute I48.91 - UNSPECIFIED ATRIAL FIBRILLATION Comment/Plan: Echocardiogram ef = 30-35% and cardiology follow-up appreciated. Control of heart rate will be achieved with the metoprolol and Cardizem. Switching his Zocor to Lipitor will be necessary due to the use of Cardizem. (6) Left shoulder pain Chronic M25.512 - PAIN IN LEFT SHOULDER Qualifiers: Chronicity: chronic Qualified Code(s): M25.512 - Pain in left shoulder; G89.29 - Other chronic pain (7) Low back pain Acute M54.5 - LOW BACK PAIN Qualifiers: Chronicity: acute Back pain laterality: midline Sciatica presence: without sciatica Qualified Code(s): M54.5 - Low back pain (8) Elevated brain natriuretic peptide (BNP) level Acute R79.89 - OTHER SPECIFIED ABNORMAL FINDINGS OF BLOOD CHEMISTRY Comment/ Plan: Enriquez zone troponins of 0.06 times 3. May be due to demand ischemia associated with coronary insufficiency with the rapid heart rate. Nuclear stress test in a.m. is ordered. (9) Hypoxemia Acute R09.02 - HYPOXEMIA Comment/Plan: Supplemental O2 as ordered. (10) Hypercholesterolemia Chronic E78.00 - PURE HYPERCHOLESTEROLEMIA, UNSPECIFIED Comment/Plan: Statin therapy is ordered but since taking Cardizem will have to switch Zocor to Lipitor. Case Care Discussed with: Patient, Nursing Staff Education/Counseling Given To: Patient Education/Counseling Given Regarding: Diagnosis Total Time: 43 min Critical Care: No Code: 62714 (12+)
[2016-10-09] MEDS: TEMAZEPAM 15 MG CAP PO PRN (19:36)
[2016-10-10 04:53] LABS: LDL (calc.) 78.2 MG/DL (<100); VLDL (calc.) 30.8 MG/DL (5-40)
[2016-10-10] MEDS: REGULAR INSULIN 100 UNITS/ML - 3 ML VIAL SQ SCH ×2 (05:49→17:49)
[2016-10-10] MEDS: HCTZ PO SCH ×2 (08:34→09:02)
[2016-10-10] MEDS: TRIAMTERENE PO SCH ×2 (08:34→09:02)
[2016-10-10] MEDS: METOPROLOL TARTRATE 100 MG TAB PO SCH ×2 (08:34→09:01)
[2016-10-10] MEDS: POTASSIUM CHLORIDE 20 MEQ TAB PO SCH ×2 (08:35→09:02)
[2016-10-10] MEDS: Aspirin (Orange Enteric Coated) 325 mg tab PO SCH ×2 (08:35→09:01)
[2016-10-10] MEDS: ATORVASTATIN 40 MG TAB PO SCH ×2 (08:35→09:01)
--- NOTE | 2016-10-10 09:19 | PCM.CARD ---
- Subjective Reason for visit: Atrial fibrillation persistent with rapid rate with cardiomyopathy EF in the range of 30 35% by echo. Current Assessment: No New Symptoms, Orthopnea, Shortness of Breath, Other (He is tearful and anxious and agitated today relates the short of breath has been this way for about 1 week with orthopnea and subsequently dyspnea at rest he is unaware that he is in rapid AFib and [facility] he was non irregular heart rhythm.). negative: Chest Pain, Palpitations, Syncope Vital Signs: Last Vital Signs Temp 97.9 F 10/10/16 08:36 Pulse 132 H 10/10/16 08:36 Resp 18 10/10/16 08:36 BP 204/122 H 10/10/16 08:36 Pulse Ox 93 10/10/16 08:36 Systolic blood pressure is markedly elevated, heart rates are between 100-110 and 125-135 Respiratory: Diminished, Rales (Few rales at the bases), Tachypnea. negative: Rhonchi, Wheezes Jugular Vein Distention: None Pulse Rhythm: Irregular (Rapid atrial fibrillation, I reviewed his strips and I think that he is having a bare in conduction and not ventricular tachycardia.) Heart Sounds: negative: S1 & S2 (Variable S1), S3, Murmur Edema Type: Pitting Edema Degree: 2+ (To the thighs bilaterally) Lab/DI Results Reviewed: Laboratory Tests 10/06/16 10/08/16 10/08/16 11:11 10:15 10:30 WBC Hgb Plt Count pH 7.460 H pCO2 36.0 pO2 55.0 L Potassium Creatinine Estimated GFR (MDRD) Magnesium Wtu-I-Zaqeqkfcifm Pept 3230 H 5080 H 10/09/16 10/09/16 10/09/16 02:50 02:50 02:50 WBC 10.0 Hgb 14.2 D Plt Count 206 pH pCO2 pO2 Potassium 3.6 Creatinine 1.00 Estimated GFR (MDRD) > 60 Magnesium 2.30 Qmj-N-Hhushjfcgvu Pept Chest x-ray is consistent with decompensated heart failure - Assessment/Plan (1) Atrial fibrillation Acute I48.91 - UNSPECIFIED ATRIAL FIBRILLATION persistent I48.1 - Persistent atrial fibrillation Comment/Plan: Clinically he has persistent atrial fibrillation with a tachycardia induced cardiomyopathy. At this time I would give him short-acting beta-senia calcium channel senia at frequent intervals for rate control, if needed IV calcium channel senia. He should be anticoagulated with a chads 2 Vasc score of 3. Once recovered from his decompensated heart failure should either be referred for coronary arteriography her of a myocardial perfusion study performed to screen for CAD. With decompensated heart failure I will cancel his myocardial perfusion study to be performed today (2) Acute systolic heart failure Acute I50.21 - ACUTE SYSTOLIC (CONGESTIVE) HEART FAILURE Present on Admission: Yes Comment/Plan: Decompensated, he will require IV diuretic and serial BNP levels and heart rate control. With his blood pressure extremity elevated started on JAREN-inhibitor. (3) Hypertensive heart disease with CHF Chronic I11.0 - HYPERTENSIVE HEART DISEASE WITH HEART FAILURE Present on Admission: Yes Comment/Plan: Both heart failure and hypertension or decompensated see plans above
[2016-10-10] MEDS ORDERED: LISINOPRIL 10 MG TAB PO SCH (10:00)
[2016-10-10 10:02] LABS: BLOOD UREA NITROGEN 24 MG/DL (9-20); CALCIUM 8.7 MG/DL (8.4-10.2); CALCULATED OSMOLALITY 273 MOs/Kg (270-290); CHLORIDE 108 mEq/L (98-107); GLUCOSE 101 MG/DL (70-99); SODIUM LEVEL 140 mEq/L (137-146)
[2016-10-10] MEDS: METOPROLOL TARTRATE 50 MG TAB PO SCH ×2 (11:41→17:53)
[2016-10-10] MEDS: SPIRONOLACTONE 25 MG TAB PO SCH (11:41)
[2016-10-10] MEDS: FUROSEMIDE 40 MG/4 ML VIAL IV SCH ×2 (11:42→17:53)
[2016-10-10] MEDS: NS/KCl 20 mEq 1,000 ML IV SCH ×2 (11:47→20:29)
--- NOTE | 2016-10-10 13:19 | CAPUEKG ---
[place], [place] Test Date: 2016-10-09 Pat Name: ALFONZO FLEMING Department: Room: 436 Gender: Male Corporate Safety Coordinator: : Requested By: Order Number: Reading MD: Lux Moore MD Measurements Intervals [place] Rate: 158 P: GA: QRS: 69 QRSD: 72 T: 63 QT: 274 QTc: 444 Interpretive Statements Atrial fibrillation Consider anteroseptal infarct, age undetermined Abnormal ECG Electronically Signed On 10-10-16 13:19:29 EST by Lux Moore MD [email or web address]> [id number]
--- NOTE | 2016-10-10 17:11 | GENMEDPROG ---
Subjective Note: Patient admitted last night with decompensated congestive heart failure. Was originally scheduled for stress test which has been postponed. Patient had an episode of confusion this morning where he became tearful and was refusing treatment. Notes Reviewed: Yes Events from last night noted and discussed with Clinical Staff Current Medication List: Reviewed Currently: Reports: FOX, SOB. Denies: Wheezing DVT Prophylaxis: Yes - Physical Examination Vital Signs and I&O: Last Vital Signs Temp 98.3 F 10/10/16 16:26 Pulse 75 10/10/16 16:26 Resp 18 10/10/16 16:26 BP 154/100 10/10/16 16:26 Pulse Ox 96 10/10/16 16:26 Oxygen Pulse Oxygen Saturation 96 O2 Device Nasal Cannula Oxygen Flow Rate 2 Fraction of Inspired Oxygen ( FIO2) Intake & Output 10/07/16 10/08/16 10/09/16 10/10/16 23:59 23:59 23:59 23:59 Intake Total 360 1393 480 Output Total 400 1550 650 Balance -40 -157 -170 Patient's weight 99.654 kg 100.045 kg 98.928 kg General: Alert, Oriented x3, No acute distress, Well appearing, Well nourished HEENT: Normal (Normocephalic, atraumatic;EOMI.Sclera white, Nares patent, without discharge or bleeding. No oropharyngeal lesions or erythema. Mucous membranes are dry.) Respiratory: Diminished, Rales (Few rales at the bases), Tachypnea. negative: Rhonchi, Wheezes Cardiovascular: Regular rate and rhythm (No bradycardia or tachycardia), Normal S1, No Gallops,Rubs/Murmurs, Normal S2, Good Pedal Pulses (DP pulses 2+ bilaterally) GI: Normal bowel sounds (normal active sounds), Soft (non-distended), Non tender , No hepatospenomegaly, No masses Extremities/Musculoskeletal: Normal pulses (DP pulses 2+ bilaterally) Skin: Warm,Dry and Intact, No rashes, No significant lesion Neurological: Strength at 5/5 X4 ext (Motor 5/5 throughout.), Normal tone, Cranial nerves 3-12 NL ( 2-12 grossly intact.) Lab/DI/Studies Reviewed: Abnormal Lab Results 10/10/16 10/10/16 10/10/16 03:15 03:15 05:41 Chloride 108 H BUN 24 H Glucose 101 H POC Capillary Glucose 104 H Triglycerides 154 H HDL Cholesterol 33.0 L - Assessment (1) Congestive heart failure Acute I50.9 - HEART FAILURE, UNSPECIFIED Qualifiers: Congestive heart failure type: combined Congestive heart failure chronicity : acute Qualified Code(s): I50.41 - Acute combined systolic (congestive) and diastolic (congestive) heart failure Comment/Plan: Heart failure associated with rapid atrial fib but also concerned he has a systolic component which was verified with echocardiogram which showed his ejection fraction to be between 30 and 35%. Cardiology consult obtained and appreciated. Apparently amiodarone is not indicated at this point time. Continue aggressive diuresis plan. (2) Atrial fibrillation with RVR Acute I48.91 - UNSPECIFIED ATRIAL FIBRILLATION Comment/Plan: Continue heart rate control and treatment per Cardiology. (3) Nonsustained ventricular tachycardia Acute I47.2 - VENTRICULAR TACHYCARDIA Comment/Plan: Nonsustained ventricular tachycardia prompted consultation with Dr. Dang, who recommended that the heart rate be controlled. Apparently no need for amiodarone at this point time. Although this issue can be revisited in the future. (4) Hypoxemia Acute R09.02 - HYPOXEMIA Comment/Plan: Supplemental O2 as ordered. (5) Elevated brain natriuretic peptide (BNP) level Acute R79.89 - OTHER SPECIFIED ABNORMAL FINDINGS OF BLOOD CHEMISTRY Comment/ Plan: Enriquez zone troponins of 0.06 times 3. May be due to demand ischemia associated with coronary insufficiency with the rapid heart rate. Nuclear stress test once out of decomp CHF (6) Hypertension Chronic I10 - ESSENTIAL (PRIMARY) HYPERTENSION Qualifiers: Hypertension type: essential hypertension Qualified Code(s): I10 - Essential (primary) hypertension (7) Thoracic ascending aortic aneurysm Chronic I71.2 - THORACIC AORTIC ANEURYSM, WITHOUT RUPTURE Comment/Plan: Will need to have follow up with thoracic surgeon and repeat CT 6 months from now to monitor size. May need to go to the [facility] for thoracic surgeon. (8) Left shoulder pain Chronic M25.512 - PAIN IN LEFT SHOULDER Qualifiers: Chronicity: chronic Qualified Code(s): M25.512 - Pain in left shoulder; G89.29 - Other chronic pain (9) Low back pain Acute M54.5 - LOW BACK PAIN Qualifiers: Chronicity: acute Back pain laterality: midline Sciatica presence: without sciatica Qualified Code(s): M54.5 - Low back pain - Plan diuresis Disposition Plan: home vs SNF Case Care Discussed with: Patient, Family Education/Counseling Given To: Patient, Family Member Education/Counseling Given Regarding: Diagnosis, Treatment, Prognosis Total Time: 45 min Critical Care: No Couseling Time (>50% in counseling/coordination): No
[2016-10-10] MEDS: APIXABAN 5 MG TABLET PO SCH (20:28)
[2016-10-10] MEDS: TEMAZEPAM 15 MG CAP PO PRN (20:31)
[2016-10-11] MEDS: METOPROLOL TARTRATE 50 MG TAB PO SCH ×6 (00:55→23:30)
[2016-10-11 05:51] LABS: AUTOMATED BASOPHIL 0.8 % (0-2); AUTOMATED EOSINOPHIL 1.5 % (0-5); AUTOMATED MONOCYTE 7.9 % (3-10); AUTOMATED NEUTROPHIL 64.8 % (45-76)
[2016-10-11] MEDS: REGULAR INSULIN 100 UNITS/ML - 3 ML VIAL SQ SCH ×2 (05:54→16:50)
--- NOTE | 2016-10-11 07:41 | PCM.CARD ---
- Subjective Reason for visit: For atrial fibrillation and heart failure Vital Signs: Last Vital Signs Temp 97.7 F 10/11/16 03:54 Pulse 106 10/11/16 07:15 Resp 20 10/11/16 03:54 BP 162/85 10/11/16 03:54 Pulse Ox 95 10/11/16 03:54 Selected Entries 10/08/16 10/08/16 10/09/16 09:52 13:25 03:57 Patient's 224 lb 219 lb 11.2 oz 220 lb 9 oz weight 10/10/16 10/11/16 04:54 03:54 Patient's 218 lb 1.6 oz 212 lb 8 oz weight Lab/DI Results Reviewed: Laboratory Tests 10/10/16 10/11/16 03:15 05:10 Hgb 16.4 D Potassium 4.5 Creatinine 1.20 - Assessment/Plan (1) Atrial fibrillation Acute I48.91 - UNSPECIFIED ATRIAL FIBRILLATION persistent I48.1 - Persistent atrial fibrillation Comment/Plan: Improved rate controlled on oral beta-senia and anticoagulated. (2) Acute systolic heart failure Acute I50.21 - ACUTE SYSTOLIC (CONGESTIVE) HEART FAILURE Present on Admission: Yes Comment/Plan: Improved he has had a marked drop in body weight not reflected in his I&O, (3) Hypertensive heart disease with CHF Chronic I11.0 - HYPERTENSIVE HEART DISEASE WITH HEART FAILURE Present on Admission: Yes Comment/Plan: Blood pressure not a target I will increase the dose of JAREN-inhibitor
[2016-10-11] MEDS ORDERED: Albuterol/Ipratropium Neb 3 ML NEB NEB PRN (08:28)
--- NOTE | 2016-10-11 08:31 | PCM.CARD ---
- Subjective Reason for visit: Heart failure and rapid atrial fibrillation Current Assessment: No New Symptoms, Other (He is tearful crying and admits that he is sad, he has had no formal psychiatric care. He relates he was using bronchodilators prior to her coming to the hospital and is wheezing.). negative : Chest Pain, Nausea, Palpitations, Shortness of Breath, Vomiting Vital Signs: Last Vital Signs Temp 98.5 F 10/11/16 08:00 Pulse 105 10/11/16 08:00 Resp 22 10/11/16 08:00 BP 165/90 10/11/16 08:00 Pulse Ox 92 10/11/16 08:00 Respiratory: Diminished, Wheezes (Expiratory). negative: Rales, Rhonchi, Tachypnea Jugular Vein Distention: Mild Pulse Rhythm: Irregular EKG Rhythm: Atrial Fibrillation (Rates remain rapid this morning, his beta- senia was held) EKG Ectopy: Runs >10 beats (He is having episodes of wide complex that I feel is most consistent with a bare N/C and not superimposed nonsustained ventricular tachycardia on his rapid atrial fibrillation.) Heart Sounds: Distant. negative: S3, Murmur Edema Type: Pitting Edema Degree: 1+ (Lower extremity edema) - Assessment/Plan (1) Atrial fibrillation Acute I48.91 - UNSPECIFIED ATRIAL FIBRILLATION persistent I48.1 - Persistent atrial fibrillation Comment/Plan: Rates remain rapid with what I interpret to be a parent conduction, I will add a calcium channel senia for rate control specially has a require a bronchodilator for his wheezing. I started anticoagulation yesterday. (2) Acute systolic heart failure Acute I50.21 - ACUTE SYSTOLIC (CONGESTIVE) HEART FAILURE Present on Admission: Yes Comment/Plan: Improved but remains edematous and continue IV diuretics rechecking in BNP level tomorrow and chest x-ray. He initially had a myocardial perfusion study done in view of his systolic heart failure, he is bronchospastic would not be able to tolerate Lexiscan, with symptomatic heart failure he would be unable to perform a treadmill EKG stress test, and with rapid uncontrolled atrial fibrillation dobutamine is contraindicated at this time. We can make a day-to-day decision but I do not anticipate a stress test in the next 24-48 hours. (3) Hypertensive heart disease with CHF Chronic I11.0 - HYPERTENSIVE HEART DISEASE WITH HEART FAILURE Present on Admission: Yes Comment/Plan: Not a target, should benefit from adding calcium channel senia and with his tearfulness and apparent depression all stop clonidine.
[2016-10-11] MEDS: POTASSIUM CHLORIDE 20 MEQ TAB PO SCH (09:28)
[2016-10-11] MEDS: LISINOPRIL 10 MG TAB PO SCH ×2 (09:28→21:20)
[2016-10-11] MEDS: FUROSEMIDE 40 MG/4 ML VIAL IV SCH ×2 (09:29→17:07)
[2016-10-11] MEDS: ATORVASTATIN 40 MG TAB PO SCH (09:29)
[2016-10-11] MEDS: Aspirin (Orange Enteric Coated) 325 mg tab PO SCH (09:29)
[2016-10-11] MEDS: APIXABAN 5 MG TABLET PO SCH ×2 (09:29→21:20)
[2016-10-11] MEDS: SPIRONOLACTONE 25 MG TAB PO SCH (09:29)
[2016-10-11 09:50] LABS: BLOOD UREA NITROGEN 28 MG/DL (9-20); CALCIUM 9.4 MG/DL (8.4-10.2); CALCULATED OSMOLALITY 275 MOs/Kg (270-290); CHLORIDE 102 mEq/L (98-107); GLUCOSE 101 MG/DL (70-99); SODIUM LEVEL 140 mEq/L (137-146)
[2016-10-11] MEDS: DILTIAZEM 30 MG TAB PO SCH ×3 (12:23→23:30)
--- NOTE | 2016-10-11 15:54 | GENMEDPROG ---
Subjective Note: Patient once again tearful with Dr. Moore this morning. He was not tearful with me and explained that he just likes to be at home and does not like to be in the hospital in out of control. We discussed options including referring him for an outpatient stress test rather than keeping him for stress test in the hospital and he agrees with that plan. Notes Reviewed: Yes Events from last night noted and discussed with Clinical Staff Current Medication List: Reviewed Currently: Reports: FOX, SOB. Denies: Wheezing DVT Prophylaxis: Yes - Physical Examination Vital Signs and I&O: Last Vital Signs Temp 97.6 F 10/11/16 11:35 Pulse 106 10/11/16 13:45 Resp 20 10/11/16 11:35 BP 136/72 10/11/16 11:35 Pulse Ox 92 10/11/16 11:35 Oxygen Pulse Oxygen Saturation 92 O2 Device Nasal Cannula Oxygen Flow Rate 2 Fraction of Inspired Oxygen ( FIO2) Intake & Output 10/08/16 10/09/16 10/10/16 10/11/16 23:59 23:59 23:59 23:59 Intake Total 360 1393 856 480 Output Total 400 1550 650 Balance -40 -157 206 480 Patient's weight 99.654 kg 100.045 kg 98.928 kg 96.388 kg General: Alert, Oriented x3, No acute distress, Well appearing, Well nourished HEENT: Normal (Normocephalic, atraumatic;EOMI.Sclera white, Nares patent, without discharge or bleeding. No oropharyngeal lesions or erythema. Mucous membranes are dry.) Neck: JVD (Very mild) Lymphatics: Normal (No lymph node swelling or pain.) Respiratory: Diminished, Wheezes (Expiratory). negative: Rales, Rhonchi, Tachypnea Cardiovascular: Regular rate and rhythm, LE Edema (Trace) GI: Normal bowel sounds (normal active sounds), Soft (non-distended), Non tender , No hepatospenomegaly, No masses Extremities/Musculoskeletal: Normal pulses (DP pulses 2+ bilaterally) Skin: Warm,Dry and Intact, No rashes, No significant lesion Neurological: Strength at 5/5 X4 ext (Motor 5/5 throughout.), Normal tone, Cranial nerves 3-12 NL ( 2-12 grossly intact.) Psych/Mental Status: Appropriate, Normal Affect Lab/DI/Studies Reviewed: Laboratory Results - last 24 hr 10/10/16 10/11/16 10/11/16 16:16 05:10 05:10 WBC 10.6 RBC 5.31 Hgb 16.4 D Hct 48.6 MCV 92 MCH 30.9 MCHC 33.7 RDW 15.2 H Plt Count 260 MPV 9.0 Neut % (Auto) 64.8 Lymph % (Auto) 25.0 [place] % (Auto) 7.9 Eos % (Auto) 1.5 Baso % (Auto) 0.8 Absolute Neuts (auto) 6.78 Absolute Lymphs (auto) 2.65 Sodium Potassium Chloride Carbon Dioxide Anion Gap BUN Creatinine Estimated GFR (MDRD) Glucose POC Capillary Glucose 96 Calculated Osmolality Calcium Magnesium 1.90 10/11/16 10/11/16 05:14 09:27 WBC RBC Hgb Hct MCV MCH MCHC RDW Plt Count MPV Neut % (Auto) Lymph % (Auto) [place] % (Auto) Eos % (Auto) Baso % (Auto) Absolute Neuts (auto) Absolute Lymphs (auto) Sodium 140 Potassium 4.0 Chloride 102 Carbon Dioxide 29 Anion Gap 13 BUN 28 H Creatinine 1.10 Estimated GFR (MDRD) > 60 Glucose 101 H POC Capillary Glucose 104 H Calculated Osmolality 275 Calcium 9.4 Magnesium Echocardiogram: CONCLUSIONS 1. Atrial fibrillation. 2. This was a technically difficult study with suboptimal views. 3. The left ventricle is mildly dilated. 4. Overall left ventricular systolic function is moderate-severely impaired with , an EF between 30 - 35 %. 5. The left atrium is mildly dilated. 6. The right atrium is mildly enlarged. 7. There is mild aortic regurgitation. 8. Toli-ul-mlovxgzo tricuspid regurgitation present. 9. The right ventricular systolic pressure, as measured by Doppler, is 50 mmhg. Electronically Signed By: Israel Dang MD -- Electronically Signed On: 10:12:14 Copy to: Vaughn Whitfield~ 10/09/16 1020 Dictated By: Israel Dang MD 10/09/16 0704 Transcribed By: Vaughn Dawson - Assessment (1) Congestive heart failure Acute I50.9 - HEART FAILURE, UNSPECIFIED Qualifiers: Congestive heart failure type: combined Congestive heart failure chronicity : acute Qualified Code(s): I50.41 - Acute combined systolic (congestive) and diastolic (congestive) heart failure Comment/Plan: Continue treatment with systolic congestive heart failure evidence based medication regimen. Patient still with signs and symptoms of volume overload. Not a candidate for stress testing today. (2) Atrial fibrillation with RVR Acute I48.91 - UNSPECIFIED ATRIAL FIBRILLATION Comment/Plan: Continue heart rate control and treatment per Cardiology. (3) Nonsustained ventricular tachycardia Acute I47.2 - VENTRICULAR TACHYCARDIA Comment/Plan: This may actually have been a atypical atrial fibrillation. I have discussed with Dr. Moore will continue to monitor. (4) Hypoxemia Acute R09.02 - HYPOXEMIA Comment/Plan: Supplemental O2 as ordered. (5) Elevated brain natriuretic peptide (BNP) level Acute R79.89 - OTHER SPECIFIED ABNORMAL FINDINGS OF BLOOD CHEMISTRY Comment/ Plan: Enriquez zone troponins of 0.06 times 3. May be due to demand ischemia associated with coronary insufficiency with the rapid heart rate. Nuclear stress test once out of decomp CHF (6) Hypertension Chronic I10 - ESSENTIAL (PRIMARY) HYPERTENSION Qualifiers: Hypertension type: essential hypertension Qualified Code(s): I10 - Essential (primary) hypertension Comment/Plan: Continue home medications. (7) Thoracic ascending aortic aneurysm Chronic I71.2 - THORACIC AORTIC ANEURYSM, WITHOUT RUPTURE Comment/Plan: Will need to have follow up with thoracic surgeon and repeat CT 6 months from now to monitor size. May need to go to the [facility] for thoracic surgeon. (8) Left shoulder pain Chronic M25.512 - PAIN IN LEFT SHOULDER Qualifiers: Chronicity: chronic Qualified Code(s): M25.512 - Pain in left shoulder; G89.29 - Other chronic pain Comment/Plan: Continue home medication plan (9) Low back pain Acute M54.5 - LOW BACK PAIN Qualifiers: Chronicity: acute Back pain laterality: midline Sciatica presence: without sciatica Qualified Code(s): M54.5 - Low back pain Comment/Plan: Continue home medication plan - Plan diuresis Disposition Plan: home vs SNF Case Care Discussed with: Patient, Family, Nursing Staff Education/Counseling Given To: Patient, Family Member, Significant Other Education/Counseling Given Regarding: Diagnosis, Treatment, Prognosis, Follow Up , Disposition Plan Total Time: 45 minutes
[2016-10-12 05:05] VITALS: BMI 33.9
[2016-10-12] MEDS: METOPROLOL TARTRATE 50 MG TAB PO SCH ×2 (05:46→11:33)
[2016-10-12] MEDS: DILTIAZEM 30 MG TAB PO SCH ×2 (05:46→11:33)
[2016-10-12] MEDS: REGULAR INSULIN 100 UNITS/ML - 3 ML VIAL SQ SCH (05:57)
[2016-10-12 06:32] LABS: AUTOMATED BASOPHIL 0.8 % (0-2); AUTOMATED EOSINOPHIL 1.8 % (0-5); AUTOMATED LYMPH 24.4 % (17-44); AUTOMATED MONOCYTE 8.4 % (3-10); AUTOMATED NEUTROPHIL 64.6 % (45-76)
[2016-10-12 06:42] LABS: BLOOD UREA NITROGEN 34 MG/DL (9-20); CALCIUM 9.3 MG/DL (8.4-10.2); CALCULATED OSMOLALITY 274 MOs/Kg (270-290); CHLORIDE 102 mEq/L (98-107); GLUCOSE 104 MG/DL (70-99); SODIUM LEVEL 138 mEq/L (137-146)
[2016-10-12 07:37] VITALS: BP 110/52; TEMP 98.8
--- NOTE | 2016-10-12 07:45 | PCM.CARD ---
- Subjective Reason for visit: For atrial fibrillation and heart failure Current Assessment: No New Symptoms. negative: Cough, Chest Pain, FOX, Nausea, Orthopnea, Sputum, Shortness of Breath (He is ambulate in the hallways), Vomiting, Wheezing Vital Signs: Last Vital Signs Temp 98.8 F 10/12/16 07:00 Pulse 78 10/12/16 07:00 Resp 20 10/12/16 07:00 BP 110/52 L 10/12/16 07:00 Pulse Ox 93 10/12/16 07:00 Vital Signs Temp 98.8 F 10/12/16 07:00 Pulse 78 10/12/16 07:00 Resp 20 10/12/16 07:00 BP 110/52 L 10/12/16 07:00 Pulse Ox 93 10/12/16 07:00 Intake & Output 10/10/16 10/11/16 10/12/16 23:59 23:59 23:59 Intake Total 856 600 231 Output Total 650 700 Balance 206 -100 231 Patient's weight 218 lb 1.6 oz 212 lb 8 oz 210 lb 3.2 oz Intake: IV Fluids 136 0 51 Right Antecubital 136 0 51 Oral 720 600 180 Output: Urine 650 700 Other: Elimination Method Toilet Urinal Toilet Number of Unmeasured 3 3 3 Voids Urine Color Yellow Yellow Wt Change in KG 1.117 kg loss 2.540 kg loss 1.043 kg loss Weight Change from 2.4 lb(s) loss 5.6 lb(s) loss 2.3 lb(s) loss Previous Weight Weight (Calculated 98.928 96.388 95.345 Kilograms) Selected Entries 10/11/16 10/11/16 10/11/16 11:35 12:20 13:45 Pulse Rate 55 L 109 106 10/11/16 10/11/16 10/11/16 15:00 15:55 18:00 Pulse Rate 93 95 104 10/11/16 10/11/16 10/11/16 19:00 22:11 23:31 Pulse Rate 97 109 127 H 10/11/16 10/12/16 10/12/16 23:50 01:12 03:00 Pulse Rate 77 112 77 10/12/16 10/12/16 10/12/16 03:13 05:49 07:00 Pulse Rate 118 122 H 78 He has not been noting is urine output his weight continues to fall another 2 0.5 lb from yesterday Respiratory: Diminished. negative: Rales, Rhonchi Pulse Rhythm: Irregular EKG Rhythm: Atrial Fibrillation EKG Ectopy: Runs >3 beats (He is having intermittent a bearing conduction) Heart Sounds: negative: S1 & S2 (variable S1), S3, Murmur (No edema) Lab/DI Results Reviewed: Laboratory Tests 10/08/16 10/12/16 10:15 05:50 Potassium 3.8 Creatinine 1.20 Sfc-A-Mdwoaxbrjyu Pept 5080 H 1300 H - Assessment/Plan (1) Atrial fibrillation Acute I48.91 - UNSPECIFIED ATRIAL FIBRILLATION persistent I48.1 - Persistent atrial fibrillation Comment/Plan: Stable heart rate is reasonably controlled on oral calcium channel senia beta- senia I would favor cardioversion after 3 weeks affective anticoagulation. (2) Acute systolic heart failure Acute I50.21 - ACUTE SYSTOLIC (CONGESTIVE) HEART FAILURE Present on Admission: Yes Comment/Plan: Improved compensated BNP level is markedly improved and will benefit from education and home heart failure program. (3) Hypertensive heart disease with CHF Chronic I11.0 - HYPERTENSIVE HEART DISEASE WITH HEART FAILURE Present on Admission: Yes Comment/Plan: Stable continue current medications I stopped his Catapres yesterday and his mood and spirits seems markedly improved - Plan He has been offered to come and see me as an outpatient I met with him in the room and [facility] through [facility].
[2016-10-12] MEDS: LISINOPRIL 10 MG TAB PO SCH (08:43)
[2016-10-12] MEDS: ATORVASTATIN 40 MG TAB PO SCH (08:43)
[2016-10-12] MEDS: APIXABAN 5 MG TABLET PO SCH (08:43)
[2016-10-12] MEDS: POTASSIUM CHLORIDE 20 MEQ TAB PO SCH (08:43)
[2016-10-12] MEDS: SPIRONOLACTONE 25 MG TAB PO SCH (08:44)
[2016-10-12] MEDS: Aspirin (Orange Enteric Coated) 325 mg tab PO SCH (08:44)
[2016-10-12] MEDS: FUROSEMIDE 40 MG/4 ML VIAL IV SCH (08:44)
--- NOTE | 2016-10-12 11:10 | PCM.DCS92 ---
- Final/Secondary Discharge Diagnosis (1) Congestive heart failure Acute I50.9 - HEART FAILURE, UNSPECIFIED Present on Admission: Yes combined acute I50.41 - Acute combined systolic (congestive) and diastolic (congestive) heart failure Comment: Continue treatment with systolic congestive heart failure evidence based medication regimen. Patient still with signs and symptoms of volume overload. Not a candidate for stress testing today. (2) Atrial fibrillation with RVR Acute I48.91 - UNSPECIFIED ATRIAL FIBRILLATION Present on Admission: Yes Comment: Continue heart rate control and treatment per Cardiology. (3) Nonsustained ventricular tachycardia Acute I47.2 - VENTRICULAR TACHYCARDIA Comment: This may actually have been a atypical atrial fibrillation. I have discussed with Dr. Moore will continue to monitor. (4) Hypoxemia Acute R09.02 - HYPOXEMIA Present on Admission: Yes Comment: Supplemental O2 as ordered. (5) Elevated brain natriuretic peptide (BNP) level Acute R79.89 - OTHER SPECIFIED ABNORMAL FINDINGS OF BLOOD CHEMISTRY Present on Admission: Yes Comment: Enriquez zone troponins of 0.06 times 3. May be due to demand ischemia associated with coronary insufficiency with the rapid heart rate. Nuclear stress test once out of decomp CHF (6) Hypertension Chronic I10 - ESSENTIAL (PRIMARY) HYPERTENSION Present on Admission: Yes essential hypertension I10 - Essential (primary) hypertension Comment: Continue home medications. (7) Thoracic ascending aortic aneurysm Chronic I71.2 - THORACIC AORTIC ANEURYSM, WITHOUT RUPTURE Present on Admission: Yes Comment: Will need to have follow up with thoracic surgeon and repeat CT 6 months from now to monitor size. May need to go to the [facility] for thoracic surgeon. (8) Left shoulder pain Chronic M25.512 - PAIN IN LEFT SHOULDER Present on Admission: Yes chronic M25.512 - Pain in left shoulder; G89.29 - Other chronic pain Comment: Continue home medication plan (9) Low back pain Acute M54.5 - LOW BACK PAIN Present on Admission: Yes acute midline without sciatica S M54.5 - Low back pain Comment: Continue home medication plan Discharge Disposition: Home Discharge Condition: Good Cognitive Discharge Status: Unimpaired Fuctional Discharge Status: Independent Physician Follow up/Referrals: Vaughn Whitfield PA [Primary Care Provider] - One Week Lux Moore MD [Staff Physician] - Two Weeks Home Medications / New Prescriptions: New Spironolactone [Aldactone] 12.5 mg PO DAILY #30 tablet Diltiazem HCl [Diltiazem 24Hr Cd] 120 mg PO DAILY #20 cap.er.24h Apixaban [Eliquis] 5 mg PO BID #30 tablet Furosemide [Lasix] 40 mg PO DAILY #30 tablet Atorvastatin Calcium [Lipitor] 40 mg PO DAILY #30 tablet Metoprolol Tartrate [Lopressor] 50 mg PO Q6 #120 tablet Lisinopril [Zestril] 10 mg PO BID #60 tablet Discontinued Triamterene/Hydrochlorothiazid [Triamterene-Hctz 75-50 mg Tab] 1 tab PO DAILY Metoprolol Tartrate [Lopressor] 100 mg PO BID Simvastatin [Zocor] 20 mg PO HS Potassium Chloride [Klor-Con M20] 20 meq PO DAILY Discharge Home Medication List Apixaban [Eliquis] 5 mg PO BID #30 tablet 10/12/16 [Rx] Atorvastatin Calcium [Lipitor] 40 mg PO DAILY #30 tablet 10/12/16 [Rx] Diltiazem HCl [Diltiazem 24Hr Cd] 120 mg PO DAILY #20 cap.er.24h 10/12/16 [Rx] Furosemide [Lasix] 40 mg PO DAILY #30 tablet 10/12/16 [Rx] Lisinopril [Zestril] 10 mg PO BID #60 tablet 10/12/16 [Rx] Metoprolol Tartrate [Lopressor] 50 mg PO Q6 #120 tablet 10/12/16 [Rx] Spironolactone [Aldactone] 12.5 mg PO DAILY #30 tablet 10/12/16 [Rx] New Discharge Medications (Rx) Apixaban [Eliquis] 5 mg PO BID #30 tablet 10/12/16 [Rx] Atorvastatin Calcium [Lipitor] 40 mg PO DAILY #30 tablet 10/12/16 [Rx] Diltiazem HCl [Diltiazem 24Hr Cd] 120 mg PO DAILY #20 cap.er.24h 10/12/16 [Rx] Furosemide [Lasix] 40 mg PO DAILY #30 tablet 10/12/16 [Rx] Lisinopril [Zestril] 10 mg PO BID #60 tablet 10/12/16 [Rx] Metoprolol Tartrate [Lopressor] 50 mg PO Q6 #120 tablet 10/12/16 [Rx] Spironolactone [Aldactone] 12.5 mg PO DAILY #30 tablet 10/12/16 [Rx] O2 Device: Room Air Additional Instructions: please schedule for outpatient Lexiscan Cardiolite stress test. Diet at Discharge: Heart Healthy, Low Salt, Fluid Restricted (1500 ml/24 hrs) Activity: No Restrictions Call Office For: Worsening Symptoms, Fever over 100.5, Pain Uncontrolled By Meds - DC Summary Notes Hospital Course Note:: Discharge summary on patient named ALFONZO GRANT admitted to [facility] on 10/08/16 by Marcelo Del Angel MD. Date of discharge is []. Pleasant 71-year-old gentleman admitted to our facility with chest pain congestive heart failure as well as atrial fibrillation with rapid ventricular response. He was initially scheduled for stress test but unfortunately due to his congestive heart failure he was really not able to proceed with that in the hospital. His atrial fibrillation and congestive heart failure were treated and he did fairly well. Today he ambulated on room air with O2 sats of 96%. His heart rates have significantly improved with diltiazem 120 mg daily and Lopressor 50 mg p.o. q.6. At this point patient has reached maximum benefit of hospitalization. He will be scheduled for an outpatient stress test in the next couple of weeks. He will follow up with Dr. Moore in 2 weeks. And with his primary care physician at the [facility] in 1 week. He is stable for discharge home. Total Time: 45min Heart Failure DC - Education Provide the following patient education: Yes Cardiac Prudent Diet (Restricted Salt Intake), Yes Heart Failure(Continuity Care) - Discharge Medications Beta Alberto Ordered: New Prescription on Chart Ejection Fraction (% or Description): 30-35% JAREN/ARB Ordered (Patients with EF<40% use JAREN INHIBITORS &/or ARBs): New Prescription on Chart Anticoagulant Ordered for Afib: New Prescription on Chart - Physical Exam Vital Signs: Last Vital Signs Temp 98.8 F 10/12/16 07:00 Pulse 116 10/12/16 08:00 Resp 20 10/12/16 07:00 BP 110/52 L 10/12/16 07:00 Pulse Ox 96 10/12/16 09:18 Oxygen Pulse Oxygen Saturation 96 O2 Device Nasal Cannula Oxygen Flow Rate 2 Fraction of Inspired Oxygen ( FIO2) Constitutional: Alert (Awake, Fully oriented. Normal and appropriate affect.Well appearing. Well nourished.), No apparent distress Oriented to: Time, Person, Place - HEENT Head: Normal (normocephalic, atraumatic.), Other (No cervical lymphadenopathy. No supraclavicular lymphadenopathy. Neck: No palpable mass, supple , trachea midline.) Eye: Normal (pupils equal, reactive to light, and round; EOMI, Sclera white) Oropharynx: Normal (Pharynx: Moist without exudate,Gums-no swelling, No oropharyngeal lesions or erythema, Mucous membranes are dry.) ENT EAC: Normal (No oropharyngeal lesions or erythema. Mucous membranes are dry. ) TMJ: Normal Nose: No Symptoms Reported (septum midline, Nares patent, without discharge or bleeding.) - Respiratory/Cardiovascular Respiratory: Diminished, Wheezes (Expiratory). negative: Rales, Rhonchi, Tachypnea - GI Auscultation: Normal (normal active sounds) Palpation: Normal (Soft,non distended,nontender. No hepatosplenomegaly.), Other (Obese with BMI 35.5) Tenderness: Non tender - Musculoskeletal Back: Normal (Non-Tender) Extremities: Other (Limited range of motion left arm only able to raise 100 from his side) - Integumentary Skin: Normal (Warm dry no rashes) Lymphatics: Normal (No lymph node swelling or pain.) - Neurologic Memory Impaired: Normal Motor Function: Normal (Motor 5/5 throughout.Normal tone, Pulses 2+ No cyanosis or edema, FROM) Cranial Nerve: Normal (CN II-XII intact sensation, strength 5/5) Cerebellar: Normal (Babinski: toes downgoing bilaterally. Intact Finger to nose. Sensory grossly intact to light touch. Intact rapid alternating movements bilaterally. No pronator drift.) Mood Description: Normal (Fully oriented. Normal and appropriate affect.) Thought: Coherent Perception: Normal (Normal and appropriate affect.) - Other Exam Other Exam Findings: Laboratory Results - last 24 hr 10/11/16 10/12/16 10/12/16 16:21 05:50 05:50 WBC 9.4 RBC 5.28 Hgb 16.6 Hct 48.0 MCV 91 MCH 31.4 MCHC 34.5 RDW 15.1 H Plt Count 262 MPV 9.0 Neut % (Auto) 64.6 Lymph % (Auto) 24.4 [place] % (Auto) 8.4 Eos % (Auto) 1.8 Baso % (Auto) 0.8 Absolute Neuts (auto) 6.02 Absolute Lymphs (auto) 2.26 Sodium 138 Potassium 3.8 Chloride 102 Carbon Dioxide 27 Anion Gap 13 BUN 34 H Creatinine 1.20 Estimated GFR (MDRD) 60 Glucose 104 H POC Capillary Glucose 109 H Calculated Osmolality 274 Calcium 9.3 Bfs-P-Spsrkcircld Pept 1300 H 10/12/16 05:54 WBC RBC Hgb Hct MCV MCH MCHC RDW Plt Count MPV Neut % (Auto) Lymph % (Auto) [place] % (Auto) Eos % (Auto) Baso % (Auto) Absolute Neuts (auto) Absolute Lymphs (auto) Sodium Potassium Chloride Carbon Dioxide Anion Gap BUN Creatinine Estimated GFR (MDRD) Glucose POC Capillary Glucose 112 H Calculated Osmolality Calcium Nzg-B-Yupssfwjmlv Pept Echocardiogram: CONCLUSIONS 1. Atrial fibrillation. 2. This was a technically difficult study with suboptimal views. 3. The left ventricle is mildly dilated. 4. Overall left ventricular systolic function is moderate-severely impaired with , an EF between 30 - 35 %. 5. The left atrium is mildly dilated. 6. The right atrium is mildly enlarged. 7. There is mild aortic regurgitation. 8. Kylm-ji-mazikfie tricuspid regurgitation present. 9. The right ventricular systolic pressure, as measured by Doppler, is 50 mmhg. Electronically Signed By: Israel Dang MD -- Electronically Signed On: 10:12:14 Copy to: Vaughn Whitfield~ 10/09/16 1021
[2016-10-12] MEDS: NS/KCl 20 mEq 1,000 ML IV SCH (11:32)
[2016-10-12 13:21] VITALS: PULSE 107
== END 2016-10-12 13:15 | disposition home or self-care (01) | DRG 308 ==
LOC: ED 09:51 → EDINP 11:46 → PCU 13:04
PROVIDERS: ADMIT Internal Medicine; ATTEND Hospitalist
PROC: 039C3ZZ Drainage of Left Radial Artery, Percutaneous Approach (ICD-10-PCS; principal; 2016-10-08)
DX: I48.1 Persistent atrial fibrillation (principal); I50.41 Acute combined systolic (congestive) and diastolic (congestive) heart failure; I47.2 Ventricular tachycardia; I24.8 Other forms of acute ischemic heart disease; R09.02 Hypoxemia; I71.2 Thoracic aortic aneurysm, without rupture; M25.512 Pain in left shoulder; G89.29 Other chronic pain; M54.5 Low back pain; Z79.899 Other long term (current) drug therapy; Z87.891 Personal history of nicotine dependence; I42.9 Cardiomyopathy, unspecified; M19.90 Unspecified osteoarthritis, unspecified site; Z86.73 Personal history of transient ischemic attack (TIA), and cerebral infarction without residual deficits; E78.00 Pure hypercholesterolemia, unspecified; I11.0 Hypertensive heart disease with heart failure
CPT/HCPCS: 36415; 36600; 71010; 80048; 80053; 80061; 81001; 82803; 82962; 83036; 83735; 83880; 84443; 84484; 85025; 85610; 85730; 87040; 87086; 93005; 93306; 96372; 96374; 97162; 99284; G0237; J1650; J1940; J3475; J3480; J3490; J7040